=== PATIENT | male | born 1985 | race Caucasian/White ===

== ENCOUNTER 2023-05-27 15:43 | Emergency (ER) | payer MEDICAID, SELFPAY ==
[2023-05-27 15:45] VITALS: BP 153/102; PULSE 131; RESP 26; TEMP 37.7; O2SAT 99
--- NOTE | 2023-05-27 17:21 | ED.VIS.LOWEX ---
HPI History of Present Illness Chief Complaint: Lower Extremity Injury Informant: patient Narrative Narrative: Patient complains of pain in the right foot and ankle area. Patient accidentally stepped through a step yesterday evening. He was seen at [facility]. X-rays were done. He brought in the copies of the report. This did have 2 small images on it. When I look at this he has proximal fibula fracture along with a medial malleolar fracture and a little bit of widening of the mortise. This is consistent with a Maisonneuve fracture. He states they did tell him that. He has surgery set for this coming week. He just feels like the splint is very tight. No new trauma. He has been elevating it. He does not want anything for pain. He states he only wants to take Tylenol. PFSH PFSH Medical History no medical history Allergy/AdvReac Type Severity Reaction Status Date / Time No Known Allergies Allergy Verified 05/27/23 15:43 Surgical History no surgical history Social History Smoking Status: Never smoker ROS ROS ED Constitutional Constitutional ED: Denies sweats Cardiovascular Cardiovascular: Denies chest pain or palpitations Respiratory/Chest Respiratory/Chest: Denies cough or dyspnea Gastrointestinal Gastrointestinal: Denies nausea or vomiting Musculoskeletal Musculoskeletal: Reports other Details: Right leg pain. ; Denies neck pain Integumentary Denies rash Neurologic Neurologic: Reports paresthesias and other Details: Patient did feel little tingling intermittently on the toes. But not currently. ; Denies weakness Hematologic/Lymphatic Hematologic/Lymphatic: Denies easy bleeding or easy bruising Allergic/Immunologic Allergic/Immunologic ED: Denies urticaria EXAM Physical Exam Narrative Exam Narrative: General: Patient is awake and alert. He has his leg elevated he does look reasonably comfortable though. HEENT shows no trauma. Heart is actually regular now. He is only about 90. He was tachycardic when he came in. But I think he states it was more painful walking into the department. Lungs are clear. Abdomen is benign. Extremities: He has a bulky dressing with sugar-tong type splint on his right lower extremity. Toes are intact. They are not cyanotic. His sensation is intact. No real pain with motion. Const Vital Signs: 05/27/23 15:45 Temperature 99.8 F H Temperature Source Temporal Pulse Rate 131 H Respiratory Rate 26 H Blood Pressure 153/102 H Blood Pressure Mean 119 Pulse Ox 99 Oxygen Delivery Method Room Air MDM MDM MDM Narrative Medical decision making narrative: I unwrapped multiple Aristeo wrap's, took down the dressing, remove the splint, then unwrapped further wrappings. Patient states he feels almost instantly better. He states the pain is markedly down. He just thinks it was tight. I did let him sit for about an hour. He still feels comfortable. I will get him a boot orthosis. That way he can remove it if needed. But he can adjust the air bladders. He has crutches already. I explained that even though these boots are oftentimes termed walking boots, he should not bear weight. He already has follow-up arranged. Discharge Plan Triage Chief Complaint: Lower Extremity Injury ED Provider: Donnie Dahl Dx/Rx/DC Orders Clinical Impression: Tight cast, Maisonneuve fracture of right lower extremity Instructions: ED Leg Fracture Primary Care Provider: Care Physician,No Primary Referrals: Care Physician,No Primary [Primary Care Provider] - Activity Restrictions/Additional Instructions: Follow-up as scheduled for surgery. Disposition Disposition: Home, Self Care
[2023-05-27 17:52] VITALS: PULSE 84; RESP 18; O2SAT 97
== END 2023-05-27 17:53 | disposition home or self-care (01) ==
PROVIDERS: Emergency Provider Emergency Medicine; Visit Provider Emergency Medicine
DX: S82.861A Displaced Maisonneuve's fracture of right leg, initial encounter for closed fracture (principal); X58.XXXA Exposure to other specified factors, initial encounter
CPT/HCPCS: 99283

== ENCOUNTER → 2023-06-05 | Outpatient (CLI) | payer MEDICAID, SELFPAY ==
[2023-06-05 18:00] LABS: Absolute Lymphocyte Count 1.44 X10^3/uL (0.83-4.51); Absolute Neutrophil Count 6.9 X10^3/uL (2.0-7.7); Basophil# 0.06 X10^3/uL; Basophil% 0.6 % (0-1); Eosinophil# 0.23 X10^3/uL; Eosinophils% 2.4 % (0-5); Hematocrit 43.7 % (40-54); Hemoglobin 14.4 g/dL (13.0-16.5); Lymphocyte # 1.44 X10^3/ul (0.83-4.51); Lymphocyte % 14.8 % (19-41); Mean Corpuscular Hgb 28.6 pg (27.0-32.0); Mean Corpuscular Volume 86.9 fL (80-94); Mean Platelet Vol. 10.1 fl (6.2-12.0); Monocyte# 1.12 X10^3/uL; Monocyte% 11.5 % (0-10); NRBC Flagged by Analyzer 0 % (0-5); Neutrophil # 6.88 X10^3/uL (2.7-7.7); Neutrophil % 70.5 % (47-70); Platelet Count 322 K/mm3 (150-450); RBC Distribution Width SD 40.7 fl (35.1-43.9); Red Blood Count 5.03 M/mm3 (4.6-6.2); White Blood Count 9.8 K/mm3 (4.4-11.0)
[2023-06-05 18:27] LABS: ALB/GLOB Ratio 0.9 RATIO (0.9-2.4); AST(SGOT) 31 U/L (15-37); Alanine Aminotransfer ALT/SGPT 70 U/L (16-61); Albumin, Serum 3.9 g/dL (3.2-5.0); Alkaline Phosphatase 70 U/L (45-117); Anion Gap 3 (5-15); BUN 19 mg/dL (7-18); BUN/Creat Ratio 20.4 RATIO (10-20); Calcium,Total 9.1 mg/dL (8.5-10.1); Chloride 108 mmol/L (98-107); Creatinine, Serum 0.93 mg/dL (0.70-1.30); EST Glomerular Filtration Rate 97 mL/min (>60); Est Glom Filt Rate - Afr Amer 117 mL/min (>60); Globulin 4.2 g/dL (2.2-4.2); Glucose 94 mg/dL (74-106); Potassium 3.8 mmol/L (3.5-5.1); Protein, Total 8.1 g/dL (6.4-8.2); Sodium Level 140 mmol/L (136-145)
--- OUTSIDE RECORDS SUMMARY | 2023-06-05 18:45 | XMS RPT_ITS | CCD ---
Author Name Unknown Address [address] [place] [address] Organization [facility] Care Team Providers Care Bonding And Composite Fabricator Name Role Phone MAYA MIRANDA Unavailable Unavailable MAYA MIRANDA Unavailable Unavailable CRYSTAL RESENDEZ Attending Unavailable MAYA MIRANDA Primary Care Unavailable Problems Active Problems Problem Classification Problem Date Documented Da te Episodic/Chronic Fracture of lower limb (1 source) Displaced Maisonneuve's fracture of right leg, initial encounter for closed fracture; Translations: [Closed displaced Maisonneuve fracture of right lower extremity, initial encounter] Onset: 05-26-2023 Episodic Past or Other Problems Problem Classification Problem Date Documented Da te Episodic/Chronic Abdominal pain (1 source) Epigastric pain; Translations: [Epigastric pain] Onset: 04-11-2017 Episodic Other liver diseases (1 source) Unspecified jaundice; Translations: [Unspecified jaundice] Onset: 04-11-2017 Episodic Other lower respiratory disease (1 source) Pleurodynia; Translations: [Pleurodynia] Onset: 04-14-2017 Episodic Spondylosis; intervertebral disc disorders; other back problems (1 source) Low back pain; Translations: [Low back pain] Onset: 04-14-2017 Episodic Results Test Name Value Interpretation Reference Range Facil ity Encounters Encounter Date Encounter Type Care Provider Facility Start: 05-26-2023 End: 05-27-2023 Emergency department patient visit CRYSTAL RESENDEZ Facility:[facility] Start: 04-14-2017 [facility] Start: 04-11-2017 [facility] Payers Date Payer Category Payer Medicaid [id number] Summary Purpose Family History No Family History Records FoundNo Family History Records Found Advance Directives No Advanced Directives Records FoundNo Advanced Directives Records Found Additional Source Comments (unrecognized sect ion and content) No Status Records FoundNo Status Records Found INFORMATION SOURCE (unrecogn ized section and content) DATE CREATED AUTHOR AUTHOR'S VIVEK JOSÉ 05/28/2023 [facility] FOR RECORDS PERTAINING TO PATIENTS WHO ARE OR HAVE BEEN ENROLLED IN A CHEMICAL DEPENDENCY/SUBSTANCEABUSE PROGRAM, SOME INFORMATION MAY BE OMITTED. This clinical summary was aggregated from multiple sources. Caution should be exercised in using it in the provision of clinical care. This summary normalizes information from multiple sources, and as a consequence, information in this document may materially change the coding, format and clinical context of patient data. In addition, data may be omitted in some cases. CLINICAL DECISIONS SHOULD BE BASED ON THE PRIMARY CLINICAL RECORDS. [facility] [employer] [facility]. provides no warranty or guarantee of the accuracy or completeness of information in this document.
== END | disposition home or self-care (01) ==
PROVIDERS: Referring Provider Family Medicine; Visit Provider Family Medicine
DX: Z01.812 Encounter for preprocedural laboratory examination (principal)
CPT/HCPCS: 36415; 80053; 85025

== ENCOUNTER 2023-06-16 11:17 | Day surgery (SDC) | payer MEDICAID, SELFPAY ==
[2023-06-16] VITALS (11 sets, daily range): BP systolic 102–144; BP diastolic 69–96; PULSE 55–86; RESP 16–18; TEMP 36.3–36.8; O2SAT 92–97; BMI 26.3
--- OUTSIDE RECORDS SUMMARY | 2023-06-16 11:40 | XMS RPT_ITS | CCD ---
Author Name Unknown Address [address] [place] [address] Organization [facility] Care Team Providers Care Executive Secretary Name Role Phone MAYA MIRANDA Unavailable Unavailable [...] 05-27-2023 Emergency department patient visit CRYSTAL RESENDEZ Facility:[facility] Start: 04-14-2017 [facility] Start: 04-11-2017 [facility] Payers Date Payer Category Payer Medicaid [id number] Summary Purpose Family History No Family History Records FoundNo Family History Records Found Advance Directives No Advanced Directives Records FoundNo Advanced Directives Records Found Additional Source Comments (unrecognized sect ion and content) No Status Records FoundNo Status Records Found INFORMATION SOURCE (unrecogn ized section and content) DATE CREATED AUTHOR AUTHOR'S VIVEK JOSÉ 05/28/2023 [facility] FOR RECORDS PERTAINING TO PATIENTS WHO [...] BE BASED ON THE PRIMARY CLINICAL RECORDS. [facility] [employer] [facility]. provides no warranty or guarantee of the accuracy or completeness of information in this document.
--- NOTE | 2023-06-16 12:06 | DCINST_ITS ---
Discharge Instructions Diet Discharge Diet: No restrictions Activity Discharge Activity: May Not Drive and May Shower (Please utilize cast bag covering when showering to keep dressings clean, dry, and intact to the right leg) Weight Bearing Status: No weight bearing (Please remain nonweightbearing to the right lower extremity with the assistance of crutches) Keep extremity elevated above heart level: Right Leg (Please elevate right lower extremity at all times of rest for postoperative edema control) Dressing / Incision Call your doctor if you observe: Fever of 101 or Higher, Shortness of breath, Chest pain, Calf discomfort and Uncontrolled pain Change Dressing in: do not change dressing Remove Dressing in: leave in place till F/U (Do not remove dressing and leave dressing in place. Physician will change dressing at first postoperative appointment) Cleanse incision/area with: Do not get Incision Wet and Keep Dressing Clean & Dry (Please keep dressing clean, dry, and intact to the right lower extremity) Follow Up Care Please Follow Up With: Osvaldo Flores DPM When: Patient has first postoperative appointment with me in office early next week Test Results: Test results from this visit will be discussed in further detail at your follow- up appointment, if applicable. Discharge Plan Admission Attending Provider: Osvaldo Flores Primary Care Provider: Care PhysicianSallie Primary Discharge Orders/Prescriptions Prescriptions: New doxycycline hyclate 100 mg capsule 100 mg PO DAILY Qty: 10 0RF aspirin 325 mg tablet 325 mg PO DAILY Qty: 20 0RF oxycodone-acetaminophen 5-325 mg tablet 1 tab PO Q8H PRN (Reason: pain) 7 Days Qty: 28 0RF No Action hydrocodone-acetaminophen [hydrocodone-acetaminophen] 5-325 mg tablet 1 tab PO Q6H PRN PRN (Reason: Pain) 3 Days Qty: 12 0RF Referrals / Follow Up: Care PhysicianSallie Primary [Primary Care Provider] - Disposition Disposition (needs filled in before D/C Order can be placed): Home, Self Care
[2023-06-16] MEDS: Lactated Ringers 1,000 ML 15 ML IV (12:15)
--- NOTE | 2023-06-16 13:00 | RAD_ITS ---
INDICATION: FX EXAMINATION/TECHNIQUE: X-RAY - RIGHT XR Ankle 8 intraoperative Views COMPARISON: FINDINGS: Intraoperative images demonstrate ORIF at the distal tibia and fibula . Bony details are limited. RAD/Ankle min 3 Views IMPRESSION: Intraoperative images from ORIF of the fibula and tibia. Electronically Signed: Jim Gr DO at 19:20 EST ,
[2023-06-16] MEDS: Cefazolin 2 GM in 0.9% Normal Saline (100mL Bag) 100 ML IV (13:13)
[2023-06-16] MEDS: Lidocaine 1% (20 ml mdv) 20 ML Vial (15:16)
[2023-06-16] MEDS: Bupivacaine 0.5% PF 10 ML VIAL (15:16)
--- NOTE | 2023-06-16 16:03 | RAD_ITS ---
STUDY: X-RAY - RIGHT ANKLE REASON FOR EXAM: Male, 38 years old. Postop ORIF (PACU) TECHNIQUE: 3 view(s) of the ankle. COMPARISON: June 16, 2023 FINDINGS: Postsurgical changes noted status post open reduction internal fixation of trimalleolar fracture with fracture fragments in anatomic alignment and position.. Normal medial and lateral malleoli. Normal tibiotalar articulation and ankle mortise. Normal visualized talus and calcaneus. The visualized subtalar, talonavicular, calcaneocuboid and tarsal articulations are normal. The soft tissue structures are unremarkable. RAD/Ankle min 3 Views IMPRESSION: Status post ORIF bilateral trimalleolar fractures Electronically Signed: Kareem Hendrix MD at 16:17 EST ,
--- NOTE | 2023-06-16 17:02 | PCM.OPRPT ---
Problems Associated Problem List Diagnoses (1) Displaced trimalleolar fracture of right lower leg, initial encounter for closed fracture: (2) Displaced Maisonneuve's fracture of right leg, initial encounter for closed fracture: (3) Syndesmotic disruption of right ankle: (4) Pain in right lower leg: Report of Operation Date of Procedure: 06/16/23 Pre-Operative Diagnosis: 1. Displaced trimalleolar ankle fracture right ankle 2. Displaced Maisonneuve fracture right ankle 3. Disruption of syndesmosis right ankle 4. Pain right lower extremity Post-Operative Diagnosis: 1. Displaced trimalleolar ankle fracture right ankle 2. Displaced Maisonneuve fracture right ankle 3. Disruption of syndesmosis right ankle 4. Pain right lower extremity Surgery/Procedure Performed:: 1. ORIF displaced trimalleolar ankle fracture Right foot 2. Repair of syndesmosis Right ankle 3. Application of AO splint right lower extremity Description of Surgical Findings:: See operative note for final Surgeon: Osvaldo Flores loom overhauler: Andriy Garcia DPM PGY-2 Type of Anesthesia: General and Local (10 cc one-to-one mixture 1% lidocaine plain and 0.5% Marcaine plain; popliteal block postoperatively) Anesthesiologist: Tomas Nelson Specimen's removed: None Drains: None Estimated Blood Loss (mL): < 5 mL Description of Procedure: HPI/indication: Patient is a 38-year-old male who was returning home from work evening of 05/26/2023 while walking up deck steps foot got trapped between the steps and he fell and had immediate pain in the right ankle with difficulty weightbearing. He did go to outside hospital with radiographs taken demonstrating Maisonneuve fracture of the fibula with medial malleolar fracture and syndesmotic disruption of the right ankle. He was placed into a posterior splint but did have to return a few hours later due to splint being too tight and thus was transitioned into a cam boot and instructed to remain nonweightbearing to the right lower extremity. He was referred to orthopedics for follow-up, but orthopedics did send him to podiatry for fixation of his fracture. He was then seen in office 06/01/23 with updated radiographs obtained and discussion for fracture fixation. Patient at that time did not have PCP and thus needed to establish care for medical clearance prior to surgical intervention. PCP was established and he was medically cleared prior to ORIF. He did return for final surgical discussion 06/07/2023 and procedure was discussed in detail. Discussed surgical intervention was necessary for unstable displaced Maisonneuve fracture/displaced trimalar ankle with syndesmotic instability. He voices standing the need for and wishes to proceed forward so that he may return to job at an active lifestyle. We discussed all possible benefits versus risk and the potential complications in detail. Advised patient risks include but are not limited to the following: Pain, continued pain, complex regional pain syndrome, deformity, continue deformity, recurrence, overcorrection, under correction, neuritis/numbness, swelling, scarring, poor cosmetic result, bleeding, hardware failure, symptomatic/painful hardware, need for further surgery/procedures, fracture, nonunion, delayed union, nonhealing/delayed healing, dehiscence, infection, blood clots, allergic reaction, transfer lesions, postoperative arthritis, weakness, shoe gear problems, inability to walk, inability to wear shoe gear, stroke, heart attack, addiction to pain medication, loss of function, loss of limb, loss of life. Patient expressed understanding and agreement with these. Patient was able to repeat these back. Typical postoperative course was reviewed. Patient expressed understanding and agreement and surgical consent was signed by patient freely. No promises were made, no guarantees were given. Diagnostic data was reviewed prior to surgical intervention. Patient was seen prior to intervention and operative limb was signed prior to entering the OR. He was scheduled to undergo ORIF of displaced Maisonneuve fracture/displaced trimalleolar right ankle fracture with syndesmotic instability at [facility] on 06/16/2023. Procedure: Under mild sedation patient was brought to the operating room placed on the table in supine position. He was secured to table with safety belt. [place] bump placed under right hip and right foot/leg was elevated with blanket bump. Following IV sedation and induction of general anesthetic a pneumatic thigh tourniquet was placed about the patient's left thigh. Next, a local anesthetic block was performed about the proximal leg consisting of 10 cc one-to-one mixture of 1% lidocaine plain 0.5% Marcaine plain. Foot and leg were scrubbed, prepped, and draped in the usual aseptic manner. At this time fluoroscopic imaging was utilized to wade landmarks and guide incision placement with confirmation of fracture levels. Esmarch bandage was utilized to exsanguinate the right foot and the pneumatic thigh tourniquet was inflated to 300 mmHg. At this time attention was then directed to the right lower extremity where a linear incision was made overlying the distal fibula utilizing a #15 blade. Incision was deepened through sharp and blunt dissection and care was taken to identify and retract all vital neurovascular structures. Fibula was then visualized and a linear incision was made through the periosteum at the distal shaft of the fibula and reflected medially and laterally for eventual placement of hardware. Next, attention was then directed to the medial aspect of the right lower extremity where a J shaped incision was made utilizing a #15 blade over the medial malleolus. Incision was deepened through sharp and blunt dissection and care was taken to identify and retract all vital neurovascular structures. There was some noted remaining hematoma about the fracture site which was evacuated and the incision was made through the periosteum overlying the medial malleolus with fracture visualized. Fracture site was curetted and fracture site was prepared for reduction and reduced via pointed reduction clamp. Next, utilizing multiple fluoroscopic views 2 K wires were inserted at the medial malleolus and following AO principles two 4.0 cannulated screws measuring 54 mm each were inserted across the fracture site at the medial malleolus and a pointed reduction clamp was then removed. Fracture was noted to be reduced in anatomic position and multiple fluoroscopic views. Next attention was directed to the lateral incision where an Arthrex 4 hole one third tubular plate applied to the lateral aspect of the fibula and temporarily anchored via olive wire. Position of plate was confirmed in multiple fluoroscopic views and following AO principles a 3.5 x 14 mm locking screw was placed in the second hole down from the most proximal hole followed by a second 3.5 x 14 mm locking screw in the most distal hole to secure the plate to the fibula. A pointed reduction clamp was then utilized to reduce the syndesmosis under fluoroscopic imaging. Next, following AO principles a Arthrex tight rope XP was placed across the syndesmosis with Endobutton deployed medially. Following reduction of syndesmosis a hook test was then performed to the lateral fibula with no syndesmotic gapping noted. Following this an external rotation test was then performed under fluoroscopy with no noted gapping of the syndesmosis. All sites were then copiously irrigated with normal sterile saline. Final fluoroscopic imaging was obtained in multiple views demonstrating anatomic reduction post ORIF. Lateral incision site deep layer closed with 3-0 Vicryl. Subcutaneous tissues closed with 4-0 Monocryl. Skin reapproximated with 3-0 Prolene in simple interrupted fashion. Medial incision site deep layer closed with 3-0 Vicryl. Subcutaneous tissues closed with 4-0 Monocryl. Skin reapproximated with 3-0 Prolene in simple interrupted fashion. At this time the pneumatic thigh tourniquet was deflated and a prompt hyperemic response was noted to the digits of the foot. Incision sites dressed with Betadine soaked Adaptic, 4 x 4 gauze, Kerlix, Webril cast padding, 4 inch Aristeo wrapped, 6 inch Aristeo wrap. A well-padded AO posterior splint was applied to the right lower extremity and anchored with a 4 inch Aristeo wrap and 6 inch Aristeo wrap and modified Juárez compression fashion. Patient tolerated the procedure and anesthesia well was transported to PACU with vital signs stable and vascular status intact to the right foot. Postoperative images were obtained and reviewed in PACU prior to leaving. While in PACU patient did receive a popliteal block by anesthesia team for continued postoperative pain control. Discharge instructions were given to patient to remain nonweightbearing to the right lower extremity with the assistance of crutches. He is to continue to elevate the right lower extremity at all times of rest for continued postoperative edema control. He is instructed to keep all dressings clean, dry, and intact to the right lower extremity and utilize shower bag covering while seated on shower chair. He will take all postoperative medications as instructed. Patient has first postoperative appointment with me in office early next week. Grafts/Implants Used: Arthrex 4hole plate;3.5 locking screw x2;4.0 Cancellous screw x2;Tight rope Complications None Admit VTE Documentation VTE Present on Admission: No VTE Mechan Device Prophylaxis: SCD's VTE Pharm Prophylaxis ordered?: Yes
[2023-06-16] MEDS: LORazepam 2 MG/ML Syringe 0.5 MG IV (17:03)
== END 2023-06-16 18:40 | disposition home or self-care (01) ==
LOC: SDC 11:19 → AC 11:21
PROVIDERS: Referring Provider Student in an Organized Health Care Education/Training Program; Visit Provider Student in an Organized Health Care Education/Training Program
PROC: (CPT 27822; principal; 2023-06-16 12:40)
DX: S82.851A Displaced trimalleolar fracture of right lower leg, initial encounter for closed fracture (principal); S82.861A Displaced Maisonneuve's fracture of right leg, initial encounter for closed fracture; S93.431A Sprain of tibiofibular ligament of right ankle, initial encounter; W10.8XXA Fall (on) (from) other stairs and steps, initial encounter; Y92.008 Other place in unspecified non-institutional (private) residence as the place of occurrence of the external cause; Y93.01 Activity, walking, marching and hiking; F17.220 Nicotine dependence, chewing tobacco, uncomplicated
CPT/HCPCS: 27822; 27829; 01480; 64445; 73610; 76000; C1713; J7120; J2405

== ENCOUNTER 2023-06-17 04:11 | Emergency (ER) | payer MEDICAID, SELFPAY ==
[2023-06-17 04:12] VITALS: BP 129/85; PULSE 82; RESP 16; TEMP 36.8; O2SAT 100; BMI 25.8
--- OUTSIDE RECORDS SUMMARY | 2023-06-17 04:28 | XMS RPT_ITS | CCD ---
Author Name Unknown Address [address] [place] [address] Organization [facility] Care Team Providers Care Manager Athletics Name Role Phone MAYA MIRANDA Unavailable Unavailable [...] 05-27-2023 Emergency department patient visit CRYSTAL RESENDEZ Facility:[facility] Start: 04-14-2017 [facility] Start: 04-11-2017 [facility] Payers Date Payer Category Payer Medicaid [id number] Summary Purpose Family History No Family History Records FoundNo Family History Records Found Advance Directives No Advanced Directives Records FoundNo Advanced Directives Records Found Additional Source Comments (unrecognized sect ion and content) No Status Records FoundNo Status Records Found INFORMATION SOURCE (unrecogn ized section and content) DATE CREATED AUTHOR AUTHOR'S VIVEK JOSÉ 05/28/2023 [facility] FOR RECORDS PERTAINING TO PATIENTS WHO ARE [...] BE BASED ON THE PRIMARY CLINICAL RECORDS. [facility] [employer] [facility]. provides no warranty or guarantee of the accuracy or completeness of information in this document.
--- NOTE | 2023-06-17 05:26 | EX.ED.DYSGE1 ---
HPI History of Present Illness Chief Complaint: Lower Extremity Injury Informant: patient Narrative Narrative: Patient is a 38-year-old male with history of right ankle fracture. He states that he was treated outpatient surgery on June 15 secondary to the fracture and discharged home. He states since being at home he has been taking his pain medication as directed but as time is gone by he now has begun to feel an increased pain as well as a numbness/tingling sensation in his right foot. He states when he originally broke the ankle/foot the initial splint was put on too tight and led to lack of blood flow. He states that this feels similar nature which concerned him and therefore he presents for evaluation [facility] Medical History Alcohol use Crutches as ambulation aid Heartburn History of irregular heartbeat Non-smoker Home Medications hydrocodone-acetaminophen 5-325mg 5mg-325mg 1 tab PO Q6H PRN PRN Pain 3 days #12 TABLETS 05/27/23 [Rx Last Taken Unknown] aspirin 325 mg tablet 325 mg PO DAILY #20 tabs 06/16/23 [Rx Last Taken Unknown] doxycycline hyclate 100 mg capsule 100 mg PO DAILY #10 caps 06/16/23 [Rx Last Taken Unknown] oxycodone-acetaminophen 5 mg-325 mg tablet 1 tab PO Q8H PRN pain 7 days #28 tabs 06/16/23 [Rx Last Taken Unknown] diazepam 5 mg tablet (Valium) 5 mg PO TID PRN muscle pain/spasm 5 days #15 tabs 06/17/23 [Rx Last Taken Unknown] ibuprofen 600 mg tablet 600 mg PO 4X/DAY PRN PRN pain #40 tabs 06/17/23 [Rx Last Taken Unknown] Allergy/AdvReac Type Severity Reaction Status Date / Time No Known Allergies Allergy Verified 05/27/23 15:43 Surgical History History of tonsillectomy Social History Smoking Status: Never smoker ROS ROS ED Constitutional Constitutional ED: Denies chills or fever(s) ENT ENT ED: Denies sore throat Cardiovascular Cardiovascular: Denies chest pain Respiratory/Chest Respiratory/Chest: Denies cough or dyspnea Gastrointestinal Gastrointestinal: Denies abdominal pain, diarrhea, nausea or vomiting Genitourinary Genitourinary ED: Denies dysuria Musculoskeletal Musculoskeletal: Reports other Details: Positive right ankle/foot pain Integumentary Denies rash Neurologic Neurologic: Reports paresthesias; Denies headache(s) Hematologic/Lymphatic Hematologic/Lymphatic: Denies easy bleeding or easy bruising EXAM Physical Exam Const Vital Signs: 06/17/23 04:12 06/17/23 05:39 Temperature 98.3 F 97.5 F L Temperature Source Temporal Pulse Rate 82 74 Respiratory Rate 16 16 Blood Pressure 129/85 H 119/88 H Blood Pressure Mean 99 98 Pulse Ox 100 99 Positive well nourished and well developed General Appearance ED: well developed HEENT HEENT Narrative: Normocephalic atraumatic Eyes PERRL and EOMs intact bilaterally Neck supple Resp normal respiratory effort and clear to auscultation bilaterally Cardio regular rate and regular rhythm Extremity Extremity Narrative: Right lower extremity is neurovascularly intact. Dorsalis pedis pulses are equal. Capillary refills less than 2 seconds bilaterally. Compartments are soft and compressible going against compartment syndrome. Patient has postsurgical incisions to both the medial and lateral aspect of the ankle that are clean dry and intact. There is soft tissue swelling and ecchymosis present consistent with his recent surgery without obvious joint effusion. Negative Homans' sign bilaterally Remainder of the exam is normal. Neuro oriented x3, CN's II-XII intact bilaterally and no sensory deficits noted Sensorium / Orientation: alert Psych mental status grossly normal Skin Skin Narrative: Soft tissue changes to the right ankle/foot as documented above MDM MDM MDM Narrative Medical decision making narrative: Patient presented to the ER with stable vitals. He reported sensation of numbness tingling increased pain in his right ankle and foot. With his recent surgical procedure there is concern for compartment syndrome versus DVT versus infection versus arterial occlusion. The patient's dorsalis pedis pulse is strong and equal bilaterally with normal capillary refill and temperature going against arterial occlusion. He does not have any calf tenderness going against DVT. He does not have a fever nor there are any changes of erythema. No discharge lymphangitic streaking to suggest infection. With soft compressible compartments he does not have compartment syndrome either. By exam the splint is not overly tight and therefore I feel the patient is experiencing increased pain from his nerve block wearing off and potentially internal soft tissue swelling from the nature of the surgery. However he does not have signs of infection arterial or vascular occlusion or compartment syndrome there is no need for further workup and he is otherwise safe for discharge. History & Record Review Discussion w/independent historian: Patient and Significant other Discharge Plan Triage Chief Complaint: Lower Extremity Injury ED Provider: Clay Armas Dx/Rx/DC Orders Clinical Impression: Other acute postprocedural pain, Displaced trimalleolar fracture of right lower leg, initial encounter for closed fracture, Displaced Maisonneuve's fracture of right leg, initial encounter for closed fracture Instructions: Ankle Fracture ORIF, Managing Post-Op Pain at Home Prescriptions: New diazepam [Valium] 5 mg tablet 5 mg PO TID PRN (Reason: muscle pain/spasm) 5 Days Qty: 15 0RF ibuprofen 600 mg tablet 600 mg PO 4X/DAY PRN PRN (Reason: pain) Qty: 40 1RF No Action hydrocodone-acetaminophen [hydrocodone-acetaminophen] 5-325 mg tablet 1 tab PO Q6H PRN PRN (Reason: Pain) 3 Days Qty: 12 0RF doxycycline hyclate 100 mg capsule 100 mg PO DAILY Qty: 10 0RF aspirin 325 mg tablet 325 mg PO DAILY Qty: 20 0RF oxycodone-acetaminophen 5-325 mg tablet 1 tab PO Q8H PRN (Reason: pain) 7 Days Qty: 28 0RF Primary Care Provider: Care Physician,No Primary Referrals: Osvaldo Flores DPM [Med Staff - Active Staff] - Care Physician,No Primary [Primary Care Provider] - Activity Restrictions/Additional Instructions: Please add the ibuprofen and Valium to your pain regimen for improved control. Please follow-up with your surgeon for repeat evaluation and return to the ER should you have any further concerns Disposition Disposition: Home, Self Care Discharge Date/Time: 06/17/23 05:58
[2023-06-17] MEDS: Ibuprofen 600 MG Tablet PO (05:36)
[2023-06-17 05:39] VITALS: BP 119/88; PULSE 74; RESP 16; TEMP 36.4; O2SAT 99
[2023-06-17] MEDS: diazePAM 5 MG Tablet PO (05:50)
[2023-06-17] MEDS: Ondansetron ODT 4 MG Tablet PO (05:50)
[2023-06-17] MEDS: Morphine 4 MG/ML Syringe 6 MG IM (05:52)
== END 2023-06-17 05:58 | disposition home or self-care (01) ==
PROVIDERS: Emergency Provider Emergency Medicine; Visit Provider Emergency Medicine
DX: G89.18 Other acute postprocedural pain (principal); S82.851A Displaced trimalleolar fracture of right lower leg, initial encounter for closed fracture; S82.861A Displaced Maisonneuve's fracture of right leg, initial encounter for closed fracture; X58.XXXA Exposure to other specified factors, initial encounter
CPT/HCPCS: 96372; 99283

== ENCOUNTER 2025-01-08 00:15 | Emergency (ER) | payer MEDICAID, SELFPAY ==
[2025-01-08 00:16] VITALS: BP 151/104; PULSE 58; RESP 16; TEMP 36.2; O2SAT 98; BMI 25.1
--- OUTSIDE RECORDS SUMMARY | 2025-01-08 00:29 | XMS RPT_ITS | CCD ---
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 for administration according to line specific nursing protocol. Once exam is complete flush line and de-access according to line specific nursing protocol in the MR contrast administration guidelines link. - cholecalciferol, Vitamin D3, (VITAMIN D3) 1,250 mcg (50,000 unit) cap capsule Take 1 capsule by mouth one time a week. - thiamine (VITAMIN B1) 100 mg tablet Take 1 tablet by mouth once daily. - folic acid 1 mg tablet Take 1 tablet by mouth once daily. Problem List As Of Date 04/24/2024 Noted Resolved Alcohol abuse [F10.10] Vitamin D deficiency [E55.9] Sebaceous cyst [L72.3] Lipoma of back [D17.1] Hyperlipemia [E78.5] Chewing tobacco use [Z72.0] Prescriptions ordered this encounter Disp Refills Start End IV CONTRAST (RADIOLOGY PROCEDURE) - * 1 Ea* 0 04/24/2024 04/25/2024 Class: In Office Sig: MRI Liver Inject, intravenously, once for 1 dose. No IV access, insert saline lock prior to the beginning of sedation, infusion, injection of imaging exam. Discontinue saline lock post exam. If Pt. has a central line or IVAD, may access for administration according to line specific nursing protocol. Once exam is complete flush line and de-access according to line specific nursing protocol in the MR contrast administration guidelines link. Encounter Status:Closed by RADHA RAMIREZ on 04/24/24 Normal [facility] MR Liver WO and W contrast I VOrdered By: Ccf Provider on 2024 Interpretation and review of laboratory results Abnormal [facility] Radiology Result ACTIONABLE Abnormal [facility] Comment on above: This report contains an incidental or actionable finding. This finding may be a new finding separate from the reason your provider ordered the imaging test or it may be an already known finding that needs additional or continued follow-up. Because of this incidental or actionable finding, you may need another test (imaging or a different type of test). Please contact your provider for the next steps. [facility] MR Liver WO and W contrast I Von 2024 IMPRESSION: Indeterminate right hepatic lobe lesion corresponding to the abnormality seen on prior US. Due to its irregular shape and lack of significant enhancement on any sequence, it may represent an area of prior injury and contusion, however it is not confidently characterized. Follow-up with MRI with extracellular agent is recommended in 3-6 months to assess stability. ACTIONABLE RESULT: FOLLOW-UP Acuity: Actionable Findings: Liver Routing Code: LV_1 Recommendation: MRI LIVER WO/W IVCON (add Dotarem in comments) Time Frame: At the discretion of the clinical team. COMMUNICATION: Results will be communicated with the ordering provider via [employer] staff message or phone message by [employer] within 2 business days of report finalization. --END OF FINDING-- Church History Teacher: EMILY Transcribe Date/Time: 2024 3:25P Dictated by : ANTONIA MOHAN MD This examination was interpreted and the report reviewed and electronically signed by: ANTONIA MOHAN MD on 2024 3:34PM [facility] DIVISION OF RADIOLOGY * * *Final Report* * * DATE OF EXAM: 2024 3:10PM [facility] 27 - MRI LIVER WO/W IVCON / PROCEDURE REASON: Liver lesion, right lobe * * * * Physician Interpretation * * * * MRI ABDOMEN WITHOUT AND WITH IV CONTRAST CLINICAL HISTORY: Liver lesion on US TECHNIQUE: Multiplanar MRI of the abdomen with multiple sequences, including both pre- and post-contrast imaging. Contrast: Intravenous: 10 ml of Eovist COMPARISON: None. RESULT: Lower Thorax: Normal. Liver: No fat or iron. Irregular hypoenhancing lesion in segment 7 measuring approximately 2.8 x 2.4 cm (25:29) corresponding to the lesion seen on prior US. The lesion does not demonstrate significant enhancement on any sequence and does not demonstrate uptake of the hepatobiliary agent. It does not demonstrate restricted diffusion and does not have signal abnormality on the T1 and T2 sequences. Gallbladder/Biliary Tree: Normal. Spleen: Normal. Pancreas: Normal. Adrenal Glands: Normal. Kidneys/Ureters: Subcentimeter right renal cyst. No hydronephrosis. Gastrointestinal: Normal. Lymph Nodes: Normal. Vessels: The celiac axis and SMA are patent. The portal vein and branches, splenic vein, SMV, and hepatic veins are patent. Peritoneum/Retroperit oneum: Normal. Bones/Soft Tissues: Normal. DIVISION OF RADIOLOGY Provider, [facility] - 2024 * * *Final Report* * * DATE OF EXAM: 2024 3:10PM [facility] 27 - MRI LIVER WO/W IVCON / PROCEDURE REASON: Liver lesion, right lobe * * * * Physician Interpretation * * * * MRI ABDOMEN WITHOUT AND WITH IV CONTRAST CLINICAL HISTORY: Liver lesion on US TECHNIQUE: Multiplanar MRI of the abdomen with multiple sequences, including both pre- and post-contrast imaging. Contrast: Intravenous: 10 ml of Eovist COMPARISON: None. RESULT: Lower Thorax: Normal. Liver: No fat or iron. Irregular hypoenhancing lesion in segment 7 measuring approximately 2.8 x 2.4 cm (25:29) corresponding to the lesion seen on prior US. The lesion does not demonstrate significant enhancement on any sequence and does not demonstrate uptake of the hepatobiliary agent. It does not demonstrate restricted diffusion and does not have signal abnormality on the T1 and T2 sequences. Gallbladder/Biliary Tree: Normal. Spleen: Normal. Pancreas: Normal. Adrenal Glands: Normal. Kidneys/Ureters: Subcentimeter right renal cyst. No hydronephrosis. Gastrointestinal: Normal. Lymph Nodes: Normal. Vessels: The celiac axis and SMA are patent. The portal vein and branches, splenic vein, SMV, and hepatic veins are patent. Peritoneum/Retroperit oneum: Normal. Bones/Soft Tissues: Normal. IMPRESSION IMPRESSION: Indeterminate right hepatic lobe lesion corresponding to the abnormality seen on prior US. Due to its irregular shape and lack of significant enhancement on any sequence, it may represent an area of prior injury and contusion, however it is not confidently characterized. Follow-up with MRI with extracellular agent is recommended in 3-6 months to assess stability. ACTIONABLE RESULT: FOLLOW-UP Acuity: Actionable Findings: Liver Routing Code: LV_1 Recommendation: MRI LIVER WO/W IVCON (add Dotarem in comments) Time Frame: At the discretion of the clinical team. COMMUNICATION: Results will be communicated with the ordering provider via [employer] staff message or phone message by [facility] within 2 business days of report finalization. --END OF FINDING-- Church History Teacher: PSCB Transcribe Date/Time: 2024 3:25P Dictated by : ANTONIA MOHAN MD This examination was interpreted and the report reviewed and electronically signed by: ANTONIA MOHAN MD on 2024 3:34PM [facility] Radiology Study observation (narrative) [facility] MRI LIVER WO/W IVCONon 04-23 MRI LIVER WO/W IVCON * * *Final Report* * * DATE OF EXAM: 2024 3:10PM [facility] 0727 - MRI LIVER WO/W IVCON / PROCEDURE REASON: Liver lesion, right lobe * * * * Physician Interpretation * * * * MRI ABDOMEN WITHOUT AND WITH IV CONTRAST CLINICAL HISTORY: Liver lesion on US TECHNIQUE: Multiplanar MRI of the abdomen with multiple sequences, including both pre- and post-contrast imaging. Contrast: Intravenous: 10 ml of Eovist COMPARISON: None. RESULT: Lower Thorax: Normal. Liver: No fat or iron. Irregular hypoenhancing lesion in segment 7 measuring approximately 2.8 x 2.4 cm (25:29) corresponding to the lesion seen on prior US. The lesion does not demonstrate significant enhancement on any sequence and does not demonstrate uptake of the hepatobiliary agent. It does not demonstrate restricted diffusion and does not have signal abnormality on the T1 and T2 sequences. Gallbladder/Biliary Tree: Normal. Spleen: Normal. Pancreas: Normal. Adrenal Glands: Normal. Kidneys/Ureters: Subcentimeter right renal cyst. No hydronephrosis. Gastrointestinal: Normal. Lymph Nodes: Normal. Vessels: The celiac axis and SMA are patent. The portal vein and branches, splenic vein, SMV, and hepatic veins are patent. Peritoneum/Retroperit oneum: Normal. Bones/Soft Tissues: Normal. IMPRESSION: Indeterminate right hepatic lobe lesion corresponding to the abnormality seen on prior US. Due to its irregular shape and lack of significant enhancement on any sequence, it may represent an area of prior injury and contusion, however it is not confidently characterized. Follow-up with MRI with extracellular agent is recommended in 3-6 months to assess stability. ACTIONABLE RESULT: FOLLOW-UP Acuity: Actionable Findings: Liver Routing Code: LV_1 Recommendation: MRI LIVER WO/W IVCON (add Dotarem in comments) Time Frame: At the discretion of the clinical team. COMMUNICATION: Results will be communicated with the ordering provider via [employer] staff message or phone message by [facility] within 2 business days of report finalization. --END OF FINDING-- Church History Teacher: EMILY Transcribe Date/Time: 2024 3:25P Dictated by : ANTONIA MOHAN MD This examination was interpreted and the report reviewed and electronically signed by: ANTONIA MOHAN MD on 2024 3:34PM EST [id number] ACTIONABLE Invalid Interpretation Code [facility] Martha 04-09-2024 SOURAV Telephone (FAMPWS) FAUSTINO NORIEGA ([id number]) 1985 M Date Time Provider Department 12/24/24 FRANKLIN IYER During your visit today, we recorded the following information about you: Franklin Iyer MD 04/09/2024 10:14 AM Signed Liver US does not show signs of cirrhosis or liver disease, but does show right lobe lesion which is indeterminate. Recommend MRI for further evaluation. Order placed to be completed MAVIS. Please assist with scheduling. Radha Ramirez LPN 04/09/2024 11:42 AM Signed Telephone call placed to patient. Went over results and recommendations. Call for scheduling given to patient, will get scheduled for MRI. Radha Ramirez LPN Allergies As of Date: 04/09/2024 (No Known Allergies) Date Reviewed: 03/30/2024 Reviewed by: Bruce Arias MA - Fully Assessed Reason for Visit: Results [95] Primary Visit Diagnosis:Liver lesion, right lobe [K76.9] Order(s):MRI LIVER WO/W IVCON [[id number]] Order #: [id number] FUTURE iv contrast (will be provided with radiology test)MRI Liver Inject, intravenously, once for 1 dose. No IV access, insert saline lock prior to the beginning of sedation, infusion, injection of imaging exam. Discontinue saline lock post exam. If Pt. has a central line or IVAD, may access for administration according to line specific nursing protocol. Once exam is complete flush line and de-access according to line specific nursing protocol in the MR contrast administration guidelines link.Disp: 1 EachRfl: 0 Prescriptions as of 04/09/2024 - iv contrast (will be provided with radiology test) MRI Liver Inject, intravenously, once for 1 dose. No IV access, insert saline lock prior to the beginning of sedation, infusion, injection of imaging exam. Discontinue saline lock post exam. If Pt. has a central line or IVAD, may access for administration according to line specific nursing protocol. Once exam is complete flush line and de-access according to line specific nursing protocol in the MR contrast administration guidelines link. - cholecalciferol, Vitamin D3, (VITAMIN D3) 1,250 mcg (50,000 unit) cap capsule Take 1 capsule by mouth one time a week. - thiamine (VITAMIN B1) 100 mg tablet Take 1 tablet by mouth once daily. - folic acid 1 mg tablet Take 1 tablet by mouth once daily. Problem List As Of Date 04/09/2024 Noted Resolved Alcohol abuse [F10.10] Vitamin D deficiency [E55.9] Sebaceous cyst [L72.3] Lipoma of back [D17.1] Hyperlipemia [E78.5] Chewing tobacco use [Z72.0] Prescriptions ordered this encounter Disp Refills Start End IV CONTRAST (RADIOLOGY PROCEDURE) - * 1 Ea* 0 04/09/2024 04/10/2024 Class: In Office Sig: MRI Liver Inject, intravenously, once for 1 dose. No IV access, insert saline lock prior to the beginning of sedation, infusion, injection of imaging exam. Discontinue saline lock post exam. If Pt. has a central line or IVAD, may access for administration according to line specific nursing protocol. Once exam is complete flush line and de-access according to line specific nursing protocol in the MR contrast administration guidelines link. Encounter Status:Closed by RADHA RAMIREZ on 04/09/24 Normal [facility] US ABD RIGHT UPPER QUADRANTo n 04-08-2024 US ABD RIGHT UPPER QUADRANT * * *Final Report* * * DATE OF EXAM: Apr 08 2024 2:53PM [facility] 1032 - US ABD RIGHT UPPER QUADRANT / PROCEDURE REASON: multiple diagnoses * * * * Physician Interpretation * * * * EXAMINATION: RIGHT UPPER QUADRANT ULTRASOUND CLINICAL HISTORY: EtOH use TECHNIQUE: Sonography of the right upper quadrant was performed. Images were obtained and stored in a permanent archive. MQ: [id number] COMPARISON: 04/11/2017 ultrasound. RESULT: Pancreas: Normal sonographic appearance. Portions obscured: tail Liver: Echotexture: Coarse Echogenicity: Normal Surface contour: Smooth Lesions: Circumscribed hypoechoic right hepatic lobe lesion of 2.3 x 1.3 x 2.3 cm. A vascular. Biliary: No intrahepatic biliary duct dilation. CBD: 0.5 cm at the hilum. Gallbladder: Normal caliber -Contents: No cholelithiasis -Wall: Normal -Other: No pericholecystic fluid. Right Kidney: No hydronephrosis. Ascites: None. IMPRESSION: Indeterminate right hepatic lobe lesion. Further evaluation with hepatic MR recommended. Otherwise normal sonographic appearance of the right upper quadrant. ACTIONABLE RESULT: FOLLOW-UP Acuity: Actionable Findings: Liver Routing Code: LV_1 Recommendation: Unlisted Recommendation (see report) Time Frame: At the discretion of the clinical team. COMMUNICATION: Results will be communicated with the ordering provider via [employer] staff message or phone message by [facility] within 2 business days of report finalization. --END OF FINDING-- Church History Teacher: EMILY Transcribe Date/Time: Apr 09 2024 8:10A Dictated by : THIERNO SARMIENTO MD This examination was interpreted and the report reviewed and electronically signed by: THIERNO SARMIENTO MD on Apr 09 2024 8:33AM EST [id number] N ACTIONABLE Invalid Interpretation Code [facility] 04-03-2024 CNPN Telephone (FAMWS) FAUSTINO NORIEGA ([id number]) 1985 Date Time Provider Department 04/03/24 FRANKLIN IYER [facility] During your visit today, we recorded the following information about you: Franklin Iyer MD 04/03/2024 8:37 AM Signed Vitamin D level severely low. Recommend 50,000 units of vitamin D weekly x 12 weeks and recheck in 3 months. Testing for thiamine deficiency was negative. If he is abstaining from alcohol, I would have him hold the vitamin B1/thiamine supplement for now, but if he were to resume drinking would have him start this to prevent deficiency. Continue folate supplement. Negative for infection with hepatitis B and C. No immunity to hepatitis B. Recommend 3 dose vaccination series as NV. Will place orders if patient agreeable. Hepatitis A testing was not done with these labs. If he does not believe he has had hepatitis A vaccination, would recommend twinrix vaccination series instead which contains both hepatitis A and B. Cholesterol level mildly elevated. Recommend low cholesterol diet and exercise. Recheck in 1 year. Elizabeth Martinez, LAL 04/03/2024 9:18 AM Signed left message for patient to call office back and speak with triage nurse. ALL Kingsley Michelle, LPN 04/03/2024 6:13 PM Signed Patient reached out through [employer]. [employer] message sent to patient with providers results and recommendations. Radha Ramirez LPN Allergies As of Date: 04/03/2024 (No Known Allergies) Date Reviewed: 03/30/2024 Reviewed by: Bruce Arias MA - Fully Assessed Reason for Visit: Results [95] Primary Visit Diagnosis:Vitamin D deficiency [E55.9] Other Visit Diagnoses:Sebaceous cyst [L72.3] Lipoma of back [D17.1] Hyperlipidemia, unspecified hyperlipidemia type [E78.5] Chewing tobacco use [Z72.0] Order(s):cholecalcife rol, Vitamin D3, (VITAMIN D3) 1,250 mcg (50,000 unit) cap capsuleTake 1 capsule by mouth one time a week.Disp: 12 capsuleRfl: 0 VITAMIN D 25 HYDROXY [SQVITD] Order #: [id number] FUTURE Prescriptions as of 04/03/2024 - cholecalciferol, Vitamin D3, (VITAMIN D3) 1,250 mcg (50,000 unit) cap capsule Take 1 capsule by mouth one time a week. - thiamine (VITAMIN B1) 100 mg tablet Take 1 tablet by mouth once daily. - folic acid 1 mg tablet Take 1 tablet by mouth once daily. Problem List As Of Date 04/03/2024 Noted Resolved Alcohol abuse [F10.10] Vitamin D deficiency [E55.9] Sebaceous cyst [L72.3] Lipoma of back [D17.1] Hyperlipemia [E78.5] Chewing tobacco use [Z72.0] Prescriptions ordered this encounter Disp Refills Start End CHOLECALCIFEROL (VITAMIN D3) 1,250 M* 12 c* 0 04/03/2024 07/02/2024 Route: ORAL Sig: Take 1 capsule by mouth one time a week. Encounter Status:Closed by RADHA RAMIREZ on 04/03/24 Normal [facility] 25(OH)[facility] 25-hydroxyvitamin D3 [Mass/Vol] 17.4 ng/mL Low 31.0-80.0 [facility] Comment on above: Order Comment: Speci men Type: BLOOD SPECIMENOrdering Facility: [facility] Address: [address] [place] [address] Result Comment: Clas sification of 25 [place] Vitamin D status: Deficiency/Insufficiency: < or = 30 ng/ml. Sufficiency/Optimal Levels: 31-80 ng/mL Toxicity: > 100 ng/mL. Test performed by chemiluminescent immunoassay. Performed By: #### 1 989-3 ####[facility] LABCLIA [id number] [place] [address] [place] CBC W Auto Differential pane l (Bld)on 03-30-2024 Basophils (Bld) [#/Vol] 0.08 10*3/uL Normal <0.11 [facility] Comment on above: Order Comment: Speci men Type: BLOOD SPECIMENOrdering Facility: [facility] Address: [address] [place] [address] Performed By: #### 5 7021-8 ####[facility] LABCLIA [id number] [place] [address] [place] Basophils/100 WBC (Bld) 1.2 % Normal [facility] Comment on above: Order Comment: Speci men Type: BLOOD SPECIMENOrdering Facility: [facility] Address: [address] [place] [address] Performed By: #### 5 7021-8 ####[facility] LABCLIA [id number] [place] [address] [place] Differential cell count method Nom (Bld) Auto Normal [facility] Comment on above: Order Comment: Speci men Type: BLOOD SPECIMENOrdering Facility: [facility] Address: [address] [place] [address] Performed By: #### 5 7021-8 ####[facility] LABCLIA [id number] [place] [address] [place] Eosinophils (Bld) [#/Vol] 0.34 10*3/uL Normal <0.46 [facility] Comment on above: Order Comment: Speci men Type: BLOOD SPECIMENOrdering Facility: [facility] Address: [address] [place] [address] Performed By: #### 5 7021-8 ####[facility] LABIA [id number] [place] [address] [place] Eosinophils/100 WBC (Bld) 5.0 % Normal [facility] Comment on above: Order Comment: Speci men Type: BLOOD SPECIMENOrdering Facility: [facility] Address: [address] [place] [address] Performed By: #### 5 7021-8 ####[facility] LABIA [id number] [place] [address] [place] Erythrocyte distribution width (RBC) [Ratio] 12.9 % Normal 11.5-15.0 [facility] Comment on above: Order Comment: Speci men Type: BLOOD SPECIMENOrdering Facility: [facility] Address: [address] [place] [address] Performed By: #### 5 7021-8 ####[facility] LABIA [id number] [place] [address] [place] Hematocrit (Bld) [Volume fraction] 45.9 % Normal 39.0-51.0 [facility] Comment on above: Order Comment: Speci men Type: BLOOD SPECIMENOrdering Facility: [facility] Address: [address] [place] [address] Performed By: #### 5 7021-8 ####[facility] LABIA [id number] [place] [address] [place] Hemoglobin (Bld) [Mass/Vol] 15.0 g/dL Normal 13.0-17.0 [facility] Comment on above: Order Comment: Speci men Type: BLOOD SPECIMENOrdering Facility: [facility] Address: [address] [place] [address] Performed By: #### 5 7021-8 ####[facility] LABCLIA [id number] [place] [address] [place] Immature granulocytes (Bld) [#/Vol] 0.03 10*3/uL Normal <0.10 [facility] Comment on above: Order Comment: Speci men Type: BLOOD SPECIMENOrdering Facility: [facility] Address: [address] [place] [address] Performed By: #### 5 7021-8 ####[facility] LABCLIA [id number] [place] [address] [place] Immature granulocytes/100 WBC (Bld) 0.4 % Normal [facility] Comment on above: Order Comment: Speci men Type: BLOOD SPECIMENOrdering Facility: [facility] Address: [address] [place] [address] Performed By: #### 5 7021-8 ####[facility] LABIA [id number] [place] [address] [place] Lymphocytes (Bld) [#/Vol] 1.92 10*3/uL Normal 1.00-4.00 [facility] Comment on above: Order Comment: Speci men Type: BLOOD SPECIMENOrdering Facility: [facility] Address: [address] [place] [address] Performed By: #### 5 7021-8 ####[facility] LABCLIA [id number] [place] [address] [place] Lymphocytes/100 WBC (Bld) 28.3 % Normal [facility] Comment on above: Order Comment: Speci men Type: BLOOD SPECIMENOrdering Facility: [facility] Address: [address] [place] [address] Performed By: #### 5 7021-8 ####[facility] LABCLIA [id number] [place] [address] [place] MCH (RBC) [Entitic mass] 28.1 pg Normal 26.0-34.0 [facility] Comment on above: Order Comment: Speci men Type: BLOOD SPECIMENOrdering Facility: [facility] Address: [address] [place] [address] Performed By: #### 5 7021-8 ####[facility] LABCLIA [id number] [address] [address] [place] MCHC (RBC) [Mass/Vol] 32.7 g/dL Normal 30.5-36.0 [facility] Comment on above: Order Comment: Speci men Type: BLOOD SPECIMENOrdering Facility: [facility] Address: [address] [place] [address] Performed By: #### 5 7021-8 ####[facility] LABIA [id number] [place] [address] [place] MCV (RBC) [Entitic vol] 86.0 fL Normal 80.0-100.0 [facility] Comment on above: Order Comment: Speci men Type: BLOOD SPECIMENOrdering Facility: [facility] Address: [address] [place] [address] Performed By: #### 5 7021-8 ####[facility] LABIA [id number] [place] [address] [place] Monocytes (Bld) [#/Vol] 1.01 10*3/uL High <0.87 [facility] Comment on above: Order Comment: Speci men Type: BLOOD SPECIMENOrdering Facility: [facility] Address: [address] [place] [address] Performed By: #### 5 7021-8 ####[facility] LABIA [id number] [place] [address] [place] Monocytes/100 WBC (Bld) 14.9 % Normal [facility] Comment on above: Order Comment: Speci men Type: BLOOD SPECIMENOrdering Facility: [facility] Address: [address] [place] [address] Performed By: #### 5 7021-8 ####[facility] LABCLIA [id number] [place] [address] [place] Neutrophils (Bld) [#/Vol] 3.41 10*3/uL Normal 1.45-7.50 [facility] Comment on above: Order Comment: Speci men Type: BLOOD SPECIMENOrdering Facility: [facility] Address: [address] [place] [address] Performed By: #### 5 7021-8 ####[facility] LABCLIA [id number] [place] [address] [place] Neutrophils/100 WBC (Bld) 50.2 % Normal [facility] Comment on above: Order Comment: Speci men Type: BLOOD SPECIMENOrdering Facility: [facility] Address: [address] [place] [address] Performed By: #### 5 7021-8 ####[facility] LABCLIA [id number] [place] [address] [place] Nucleated RBC (Bld) [#/Vol] 10*3/uL Normal <0.01 [facility] Comment on above: Order Comment: Speci men Type: BLOOD SPECIMENOrdering Facility: [facility] Address: [address] [place] [address] Performed By: #### 5 7021-8 ####[facility] LABCLIA [id number] [place] [address] [place] Nucleated RBC/100 WBC (Bld) [Ratio] 0.0 /100 WBC Normal [facility] Comment on above: Order Comment: Speci men Type: BLOOD SPECIMENOrdering Facility: [facility] Address: [address] [place] [address] Performed By: #### 5 7021-8 ####[facility] LABCLIA [id number] [place] [address] [place] Platelet mean volume (Bld) [Entitic vol] 11.3 fL Normal 9.0-12.7 [facility] Comment on above: Order Comment: Speci men Type: BLOOD SPECIMENOrdering Facility: [facility] Address: [address] [place] [address] Performed By: #### 5 7021-8 ####[facility] LABCLIA [id number] [place] [address] [place] Platelets (Bld) [#/Vol] 252 10*3/uL Normal 150-400 [facility] Comment on above: Order Comment: Speci men Type: BLOOD SPECIMENOrdering Facility: [facility] Address: [address] [place] [address] Performed By: #### 5 7021-8 ####[facility] LABIA [id number] [place] [address] [place] RBC (Bld) [#/Vol] 5.34 10*6/uL Normal 4.20-6.00 [facility] Comment on above: Order Comment: Speci men Type: BLOOD SPECIMENOrdering Facility: [facility] Address: [address] [place] [address] Performed By: #### 5 7021-8 ####[facility] LABIA [id number] [place] [address] [place] WBC (Bld) [#/Vol] 6.79 10*3/uL Normal 3.70-11.00 [facility] Comment on above: Order Comment: Speci men Type: BLOOD SPECIMENOrdering Facility: [facility] Address: [address] [place] [address] Performed By: #### 5 7021-8 ####[facility] LABIA [id number] [place] [address] [place] CNOVon 03-30-2024 CNOV Office Visit (FAMPWS ) FAUSTINO NORIEGA ([id number]) 1985 M Date Time Provider Department 03/30/24 10:00 AM FRANKLIN IYER During your visit today, we recorded the following information about you: Pulse Respiration Blood pressure Weight 78/minute 14/minute 142/96 92.1 kg Height 1.76 m Franklin Iyer MD 03/31/2024 6:46 AM Signed Chief Complaint Patient presents with: Establish Care: HPI Faustino Noriega is a 38 year old male who presents here today for Above Complaints. Previous PCP Willie Leal with last OV in 2017. Patient here today because he is worried about possible liver disease due to alcohol use. Patient states that over the last 6-7 months he has noticed the corners of his eyes will turn yellow, pale colored stools (light brown/yellow), and fatigue. States that he was drinking 5-10 beers about 5-6 days per week, but has not had any alcohol in the last week. States that he does not want help with cessation and thinks he will be able to abstain on his own. Had DUI at age 22. Does not drink in the morning and does not get shaking after not having a drink for 24 hours. Girlfriend has expressed concerns with his drinking and has wanted him to cut back. Denies yellowing of his skin, abdominal pain/distention, itching, bleeding/bruising. Also would like lump below right eyebrow checked today. Present for the last 8-9 months and has not changed in size. Non tender. No drainage. . Last tetanus booster more than 10 years ago and would like updated today. Unsure if he has been vaccinated for hepatitis A or B. Past medical history, appointments, medications, allergies reviewed. Previous Medical History PAST MEDICAL HISTORY Diagnosis Date Alcohol abuse Ankle fracture, right, closed, initial encounter 06/2023 s/p ORIF Chewing tobacco use Heart murmur Lipoma of back Previous Surgical History PAST SURGICAL HISTORY Procedure Laterality Date PAST SURGICAL HISTORY OF Right 06/2023 DEMI ankle fracture TONSILLECTOMY AND ADENOIDECTOMY Family History FAMILY HISTORY Problem Relation Age of Onset No Known Problems Mother other (colon) Father Lung Cancer Maternal Grandfather Lung Cancer Paternal Grandfather No Known Problems Son No Known Problems Daughter Patient Allergies ALLERGIES No Known Allergies Current Medications No current outpatient medications on file prior to visit. No current facility-administered medications on file prior to visit. Social History Social History Tobacco Use Smoking status: Never Smokeless tobacco: Current Types: Chew Tobacco comments: Chewed starting age 15. 1 can every 4 days. Vaping Use Vaping status: Never Used Substance Use Topics Alcohol use: Yes Alcohol/week: 50.0 standard drinks of alcohol Types: 50 Standard drinks or equivalent per week Drug use: Never Review of Symptoms REVIEW OF SYSTEMS GENERAL: No weight loss, malaise or fevers NECK: Negative for lumps, goiter, pain and significant neck swelling RESPIRATORY: Negative for cough, hemoptysis, wheezing, COPD, dyspnea or shortness of breath CARDIOVASCULAR: Negative for chest pain, leg swelling, hypertension, CHF or palpitations GI: No nausea, vomiting, or diarrhea SKIN: See HPI PSYCH: Negative for sleep disturbance, mood disorder and recent psychosocial stressors HEMATOLOGY/LYMPHOLOGY : Negative for prolonged bleeding, bruising easily or swollen nodes ENDOCRINE: Negative for cold or heat intolerance, polyuria, polydipsia and goiter NEURO: No history of headaches, syncope, paralysis, seizures or tremors EXAM: BP 152/80 Pulse 78 Resp 14 Ht 176 cm (5' 9.29) Wt 92.1 kg (203 lb) BMI 29.73 kg/m? General Appearance: Well appearing, alert, in no acute distress, well-hydrated, well nourished.. Skin: <0.5 cm sebaceous cyst below right eyebrow. Squash ball sized lipoma on left upper back. Head: Normocephalic, no masses, lesions, tenderness or abnormalities. Eyes: Anicteric sclera. Pupils are equally round and reactive to light. Extraocular movements are intact. . Ears: External ears normal, canals clear. Oropharynx: Negative findings: lips normal without lesions, buccal mucosa normal, palate normal, tongue midline and normal, soft palate, uvula, and tonsils normal and Positive findings: dental caries. Neck: Supple, no adenopathy; thyroid symmetric, normal size, no bruits. Lungs: Lungs clear to auscultation. No wheezing, rhonchi, rales.. Heart: RRR without murmur, gallop, or rubs. No ectopy. Abdomen: Abdomen soft, non-tender. Bowel sounds normal. , Positive findings: hepatomegaly, liver edge palpable 2 below costal margin. Extremities: No deformities, edema, skin discoloration, clubbing or cyanosis. Good capillary refill. . Peripheral Pulses: Normal. Lymph Nodes: No cervical lymphadenopathy and No supracl (more content not included)... Normal [facility] Comprehensive metabolic 2000 panelon 03-30-2024 Albumin [Mass/Vol] 4.5 g/dL Normal 3.9-4.9 [facility] Comment on above: Order Comment: Speci men Type: BLOOD SPECIMENOrdering Facility: [facility] Address: [address] [place] [address] Performed By: #### 3 016-3, 29722-2, 2283-8, 96085-7 ####[facility] LABCLIA [id number] [place] [address] [place] ALP [Catalytic activity/Vol] 73 U/L Normal 38-113 [facility] Comment on above: Order Comment: Speci men Type: BLOOD SPECIMENOrdering Facility: [facility] Address: [address] [place] [address] Performed By: #### 3 016-3, 67998-2, 2283-8, 41381-1 ####[facility] LABCLIA [id number] [place] [address] [place] ALT [Catalytic activity/Vol] 31 U/L Normal 10-54 [facility] Comment on above: Order Comment: Speci men Type: BLOOD SPECIMENOrdering Facility: [facility] Address: [address] [place] [address] Performed By: #### 3 016-3, 45431-6, 2284-8, 60985-0 ####[facility] LABCLIA [id number] [place] [address] [place] Anion gap [Moles/Vol] 11 mmol/L Normal 8-15 [facility] Comment on above: Order Comment: Speci men Type: BLOOD SPECIMENOrdering Facility: [facility] Address: [address] [place] [address] Performed By: #### 3 016-3, 09523-2, 2284-8, 63190-3 ####[facility] LABCLIA [id number] [place] [address] [place] AST [Catalytic activity/Vol] 19 U/L Normal 14-40 [facility] Comment on above: Order Comment: Speci men Type: BLOOD SPECIMENOrdering Facility: [facility] Address: [address] [place] [address] Performed By: #### 3 016-3, 93548-5, 2283-8, 14640-4 ####[facility] LABCLIA [id number] [place] [address] [place] Bilirubin [Mass/Vol] 0.3 mg/dL Normal 0.2-1.3 [facility] Comment on above: Order Comment: Speci men Type: BLOOD SPECIMENOrdering Facility: [facility] Address: [address] [place] [address] Performed By: #### 3 016-3, 29081-0, 2283-8, 09752-1 ####[facility] LABCLIA [id number] [place] [address] [place] Calcium [Mass/Vol] 9.1 mg/dL Normal 8.5-10.2 [facility] Comment on above: Order Comment: Speci men Type: BLOOD SPECIMENOrdering Facility: [facility] Address: [address] [place] [address] Performed By: #### 3 016-3, 77966-8, 2284-8, 74629-8 ####[facility] LABCLIA [id number] [place] [address] [place] Chloride [Moles/Vol] 108 mmol/L High 98-107 [facility] Comment on above: Order Comment: Speci men Type: BLOOD SPECIMENOrdering Facility: [facility] Address: [address] [place] [address] Performed By: #### 3 016-3, 40483-6, 2284-8, 11288-4 ####[facility] LABCLIA [id number] [place] [address] [place] CO2 [Moles/Vol] 22 mmol/L Normal 22-30 [facility] Comment on above: Order Comment: Speci men Type: BLOOD SPECIMENOrdering Facility: [facility] Address: [address] [place] [address] Performed By: #### 3 016-3, 20893-2, 2284-8, 48246-0 ####[facility] LABCLIA [id number] [place] [address] [place] Creatinine [Mass/Vol] 0.78 mg/dL Normal 0.73-1.22 [facility] Comment on above: Order Comment: Speci men Type: BLOOD SPECIMENOrdering Facility: [facility] Address: [address] [place] [address] Performed By: #### 3 016-3, 49271-7, 2284-8, 05402-2 ####[facility] LABCLIA [id number] [place] [address] [place] Creatinine and Glomerular filtration rate.predicted panel (S/P/Bld) 117 mL/min/1.73m??? Normal >=60 [facility] Comment on above: Order Comment: Speci men Type: BLOOD SPECIMENOrdering Facility: [facility] Address: [address] [place] [address] Result Comment: Astrid mated Glomerular Filtration Rate (eGFR) is calculated using the 2020 CKD-EPI creatinine equation. This equation utilizes serum creatinine, sex, and age as parameters. The creatinine assay has traceable calibration to isotope dilution-mass spectrometry. Refer to KDIGO guidelines for clinical interpretation. In patients with unstable renal function, e.g. those with acute kidney injury, the eGFR may not accurately reflect actual GFR. Performed By: #### 3 016-3, 93748-0, 2283-11, ####[facility] LABCLIA [id number] [address] [address] [place] Glucose [Mass/Vol] 104 mg/dL High 74-99 [facility] Comment on above: Order Comment: Esteban guy Type: BLOOD SPECIMENOrdering Facility: [facility] Address: [address] [place] [address] Result Comment: The [place] Diabetes Association (ADA) provides guidance for cutoff values for fasting glucose and random glucose. The ADA defines fasting as no caloric intake for at least 8 hours. Fasting plasma glucose results between 100 to 125 mg/dL indicate increased risk for diabetes (prediabetes). Fasting plasma glucose results greater than or equal to 126 mg/dL meet the criteria for diagnosis of diabetes. In the absence of unequivocal hyperglycemia, results should be confirmed by repeat testing. In a patient with classic symptoms of hyperglycemia or hyperglycemic crisis, random plasma glucose results greater than or equal to 200 mg/dL meet the criteria for diagnosis of diabetes. Reference: Standards of Medical Care in Diabetes 2016, [place] Diabetes Association. Diabetes Care. 2016.39(Suppl 1). Performed By: #### 3 016-3, 15600-9, 2283-11, ####[facility] LABCLIA [id number] [place] [id number] [place] Potassium [Moles/Vol] 4.6 mmol/L Normal 3.7-5.1 [facility] Comment on above: Order Comment: Esteban guy Type: BLOOD SPECIMENOrdering Facility: [facility] Address: [address] [place] [address] Performed By: #### 3 016-3, 67049-9, 2283-11, 62880-7 ####[facility] LABCLIA [id number] [address] [address] [place] Protein [Mass/Vol] 7.2 g/dL Normal 6.3-8.0 [facility] Comment on above: Order Comment: Speci men Type: BLOOD SPECIMENOrdering Facility: [facility] Address: [address] [place] [address] Performed By: #### 3 016-3, 51752-2, 2284-8, 31947-1 ####[facility] LABCLIA [id number] [place] [address] [place] Sodium [Moles/Vol] 141 mmol/L Normal 136-144 [facility] Comment on above: Order Comment: Speci men Type: BLOOD SPECIMENOrdering Facility: [facility] Address: [address] [place] [address] Performed By: #### 3 016-3, 11073-2, 2283-8, 92146-5 ####[facility] LABCLIA [id number] [place] [address] [place] Urea nitrogen [Mass/Vol] 15 mg/dL Normal 9-24 [facility] Comment on above: Order Comment: Speci men Type: BLOOD SPECIMENOrdering Facility: [facility] Address: [address] [place] [address] Performed By: #### 3 016-3, 26573-0, 2284-8, 06529-3 ####[facility] LABCLIA [id number] [place] [address] [place] Folate SerPl-mCncon 03-30-20 24 Folate [Mass/Vol] 18.8 ng/mL Normal >4.7 [facility] Comment on above: Order Comment: Speci men Type: BLOOD SPECIMENOrdering Facility: [facility] Address: [address] [place] [address] Performed By: #### 3 016-3, 30814-4, 2284-8, 48234-1 ####[facility] LABCLIA [id number] [place] [address] [place] HBV core Ab Ser Qlon 024 HBV core Ab Ql (S) Negative Normal Negative [facility] Comment on above: Order Comment: Speci men Type: BLOOD SPECIMENOrdering Facility: [facility] Address: [address] [place] [address] Result Comment: No e vidence of current or past infection with Hepatitis B virus. Should recent infection be suspected, repeat testing may be considered 3-4 weeks after this draw. Performed By: #### 2 2322-2, 09002-3, 5-3 ####[facility] LABCLIA [id number] [place] [address] [place] HBV surface Ab Ql (S)on 03-17 HBV surface Ab Qn (S) <8.00 Normal [facility] Comment on above: Order Comment: Speci men Type: BLOOD SPECIMENOrdering Facility: [facility] Address: [address] [place] [address] Result Comment: <8 m IU/mL: No serological evidence of immunity to Hepatitis B Virus. >/= 8 to <12 mIU/mL: No serological evidence of immunity to Hepatitis B Virus. >/= 12 mIU/mL: Consistent with serological evidence of immunity to Hepatitis B Virus. Performed By: #### 2 2322-2, 03924-0, 5194-3 ####[facility] LABCLIA [id number] [place] [address] [place] HBV surface Ab Ser Qlon 03-17 HBV surface Ab Ql (S) Negative Normal [facility] Comment on above: Order Comment: Speci men Type: BLOOD SPECIMENOrdering Facility: [facility] Address: [address] [place] [address] Result Comment: No s erological evidence of immunity to Hepatitis B Virus. Performed By: #### 2 2322-2, 42433-6, 5-3 ####[facility] LABCLIA [id number] [place] [address] [place] HBV surface Ag Ser Qlon 03-17 HBV surface Ag Ql (S) Negative Normal Negative [facility] Comment on above: Order Comment: Speci men Type: BLOOD SPECIMENOrdering Facility: [facility] Address: [address] [place] [address] Performed By: #### 2 2322-2, 48691-1, 5195-3 ####[facility] LABIA [id number] [place] [address] [place] HCV Ab Ser Qlon 03-30-2024 HCV Ab Ql (S) Negative Normal Negative [facility] Comment on above: Order Comment: Speci men Type: BLOOD SPECIMENOrdering Facility: [facility] Address: [address] [place] [address] Result Comment: The result suggests no evidence of active infection with Hepatitis C virus. Should recent infection be suspected, repeat testing may be considered 4-6 weeks after this draw. Performed By: #### 1 6128-1 ####[facility] LABIA [id number] [place] [address] [place] HbA1c (Bld)on 03-30-2024 Average glucose Estimated from glycated hemoglobin (Bld) [Mass/Vol] 105 mg/dL Normal [facility] Comment on above: Order Comment: Speci men Type: BLOOD SPECIMENOrdering Facility: [facility] Address: [address] [place] [address] Result Comment: eAG: (Estimated average glucose) is a calculated value from HgbA1c and is outbound telemarketing representative of the average blood glucose level in the last 2-3 month period. Performed By: #### 5 5454-3 ####[facility] LABIA [id number] [place] [address] [place] HbA1c (Bld) [Mass fraction] 5.3 % Normal 4.3-5.6 [facility] Comment on above: Order Comment: Speci men Type: BLOOD SPECIMENOrdering Facility: [facility] Address: [address] [place] [address] Result Comment: [place] Diabetes Association guidelines indicate that patients with HgbA1c in the range 5.7-6.4% are at increased risk for development of diabetes, and intervention by lifestyle modification may be beneficial. HgbA1c greater or equal to 6.5% is considered diagnostic of diabetes. Performed By: #### 5 5454-3 ####[facility] LABCLIA [id number] [place] [address] [place] Lipid 1996 panelon 4 Cholesterol [Mass/Vol] 202 mg/dL High <200 [facility] Comment on above: Order Comment: Esteban guy Type: BLOOD SPECIMENOrdering Facility: [facility] Address: [address] [place] [address] Result Comment: <200 mg/dL, Desirable 200-239 mg/dL, Borderline high >239 mg/dL, High Performed By: #### 3 016-3, 05797-4, 2283-8, 03162-3 ####[facility] LABCLIA [id number] [address] [place] Cholesterol in HDL [Mass/Vol] 44 mg/dL Normal >39 [facility] Comment on above: Order Comment: Esteban guy Type: BLOOD SPECIMENOrdering Facility: [facility] Address: [address] [place] [address] Result Comment: 40-5 9 mg/dL, Acceptable >59 mg/dL, High: Negative risk factor for coronary heart disease <40 mg/dL, Low: Positive risk factor for coronary heart disease Performed By: #### 3 016-3, 08235-2, 4-8, 60913-1 ####[facility] LABCLIA [id number] [address] [place] Cholesterol in LDL [Mass/Vol] 128 mg/dL High <100 [facility] Comment on above: Order Comment: Esteban guy Type: BLOOD SPECIMENOrdering Facility: [facility] Address: [address] [place] [address] Result Comment: <100 mg/dL, Optimal 100-129 mg/dL, Near optimal/above optimal 130-159 mg/dL, Borderline high 160-189 mg/dL, High >189 mg/dL, Very high Secondary prevention optimal LDL Cholesterol levels are recommended to be < 70 mg/dL Performed By: #### 3 016-3, 19906-4, 2284-8, 77694-4 ####[facility] LABCLIA [id number] [place] [address] [place] Cholesterol in LDL/Cholesterol in HDL [Mass ratio] 2.91 {ratio} High <2.54 [facility] Comment on above: Order Comment: Speci men Type: BLOOD SPECIMENOrdering Facility: [facility] Address: [address] [place] [address] Result Comment: Refe alexsandrace: 1. National Cholesterol Education Program ATP III Guideline At-A-Glance Quick Desk Reference: National Heart, Lung, and Blood [place]. National Institutes of Health. 2001: NIH Publication No. 01-3305. 2. An International Atherosclerosis Society position paper: global recommendations for the management of dyslipidemia: executive summary, Atherosclerosis. 2014: 232(2):410-413. Performed By: #### 3 016-3, 80214-2, 2283-8, 75912-6 ####[facility] LABCLIA [id number] [place] [address] [place] Cholesterol in VLDL [Mass/Vol] 30 mg/dL High <30 [facility] Comment on above: Order Comment: Speci men Type: BLOOD SPECIMENOrdering Facility: [facility] Address: [address] [place] [address] Performed By: #### 3 016-3, 49733-1, 2283-8, 94511-3 ####[facility] LABCLIA [id number] [place] [address] [place] Cholesterol non HDL [Mass/Vol] 158 mg/dL High <130 [facility] Comment on above: Order Comment: Speci men Type: BLOOD SPECIMENOrdering Facility: [facility] Address: [address] [place] [address] Result Comment: <130 mg/dL, Optimal 130-159 mg/dL, Near optimal/above optimal 160-189 mg/dL, Borderline high 190-219 mg/dL, High >219 mg/dL, Very high Secondary prevention optimal non HDL Cholesterol levels are recommended to be <100 mg/dL Performed By: #### 3 016-3, 91775-3, 2284-8, 27576-1 ####[facility] LABCLIA [id number] [place] [address] [place] Cholesterol.total/Chol esterol in HDL [Mass ratio] 4.59 {ratio} Normal <5.10 [facility] Comment on above: Order Comment: Speci men Type: BLOOD SPECIMENOrdering Facility: [facility] Address: [address] [place] [address] Performed By: #### 3 016-3, 50020-4, 2283-8, 02452-8 ####[facility] LABCLIA [id number] [place] [address] [place] FASTING TIME 2 hrs Normal [facility] Comment on above: Order Comment: Speci men Type: BLOOD SPECIMENOrdering Facility: [facility] Address: [address] [place] [address] Performed By: #### 3 016-3, 01028-2, 8, 23938-1 ####[facility] LABCLIA [id number] [place] [address] [place] Triglyceride [Mass/Vol] 152 mg/dL High <150 [facility] Comment on above: Order Comment: Speci men Type: BLOOD SPECIMENOrdering Facility: [facility] Address: [address] [place] [address] Result Comment: <150 mg/dL, Normal 150-199 mg/dL, Borderline high 200-499 mg/dL, High >499 mg/dL, Very high Performed By: #### 3 016-3, 37354-4, 2284-8, 02364-3 ####[facility] LABCLIA [id number] [place] [id number] [place] TSH SerPl-aCncon 03-30-2024 TSH Qn 1.350 m[IU]/L Normal 0.270-4.200 [facility] Comment on above: Order Comment: Speci men Type: BLOOD SPECIMENOrdering Facility: [facility] Address: [address] [place] [address] Performed By: #### 3 016-3, 77658-6, 2284-8, 12168-0 ####[facility] LABCLIA [id number] [place] [address] [place] VITAMIN B1 (THIAMINE), WHOLE BLOODon 03-30-2024 Thiamine (Bld) [Moles/Vol] 252.4 nmol/L High 84.3-213.3 [facility] Comment on above: Order Comment: Speci malena Type: BLOOD SPECIMEN Ordering Facility: [facility] Address: [address] [place] [address] Result Comment: This assay measures the concentration of thiamine diphosphate (TDP), the primary active form of vitamin B1. Approximately 90 percent of vitamin B1 present in whole blood is TDP. Thiamine and thiamine monophosphate, which comprise the remaining 10 percent, are not measured. This test was developed, and its performance characteristics determined by the [facility] Department of Pathology and Laboratory Medicine. It has not been cleared or approved by the FDA. The [facility] Department of Pathology and Laboratory Medicine is regulated under CLIA as qualified to perform high-complexity testing. This test is used for clinical purposes. It should not be regarded as investigational or for research. Performed By: #### B 1WB #### [facility] LAB CLIA [id number] [address] [place], [place] [id number] [place] Emergency Department Summary on 06-17-2023 Emergency Department Summary [facility] Medical Records Department [address] [place] [address] Emergency Department Summary 06/17/23 MR#: [id number] Acct: [id number] Name: FAUSTINO NORIEGA Rep #: [id number] : 1985 38 From: Clay Armas DO PCP: Care Physician,No Primary Status:DEP ER Location: ED HPI History of Present Illness Chief Complaint: Lower Extremity Injury Informant: patient Narrative Narrative: Patient is a 38-year-old male with history of right ankle fracture. He states that he was treated outpatient surgery on June 15 secondary to the fracture and discharged home. He states since being at home he has been taking his pain medication as directed but as time is gone by he now has begun to feel an increased pain as well as a numbness/tingling sensation in his right foot. He states when he originally broke the ankle/foot the initial splint was put on too tight and led to lack of blood flow. He states that this feels similar nature which concerned him and therefore he presents for evaluation [facility] Medical History Alcohol use Crutches as ambulation aid Heartburn History of irregular heartbeat Non-smoker Home Medications hydrocodone-acetamino phen 5-325mg 5mg-325mg 1 tab PO Q6H PRN PRN Pain 3 days #12 TABLETS 05/27/23 [Rx Last Taken Unknown] aspirin 325 mg tablet 325 mg PO DAILY #20 tabs 06/16/23 [Rx Last Taken Unknown] doxycycline hyclate 100 mg capsule 100 mg PO DAILY #10 caps 06/16/23 [Rx Last Taken Unknown] oxycodone-acetaminoph en 5 mg-325 mg tablet 1 tab PO Q8H PRN pain 7 days #28 tabs 06/16/23 [Rx Last Taken Unknown] diazepam 5 mg tablet (Valium) 5 mg PO TID PRN muscle pain/spasm 5 days #15 tabs 06/17/23 [Rx Last Taken Unknown] ibuprofen 600 mg tablet 600 mg PO 4X/DAY PRN PRN pain #40 tabs 06/17/23 [Rx Last Taken Unknown] Allergy/AdvReac Type Severity Reaction Status Date / Time No Known Allergies Allergy Verified 05/27/23 15:43 Surgical History History of tonsillectomy Social History Smoking Status: Never smoker ROS ROS ED Constitutional Constitutional ED: Denies chills or fever(s) ENT ENT ED: Denies sore throat Cardiovascular Cardiovascular: Denies chest pain Respiratory/Chest Respiratory/Chest: Denies cough or dyspnea Gastrointestinal Gastrointestinal: Denies abdominal pain, diarrhea, nausea or vomiting Genitourinary Genitourinary ED: Denies dysuria Musculoskeletal Musculoskeletal: Reports other Details: Positive right ankle/foot pain Integumentary Denies rash Neurologic Neurologic: Reports paresthesias; Denies headache(s) Hematologic/Lymphatic Hematologic/Lymphatic : Denies easy bleeding or easy bruising EXAM Physical Exam Const Vital Signs: 06/17/23 04:12 06/17/23 05:39 Temperature 98.3 F 97.5 F L Temperature Source Temporal Pulse Rate 82 74 Respiratory Rate 16 16 Blood Pressure 129/85 H 119/88 H Blood Pressure Mean 99 98 Pulse Ox 100 99 Positive well nourished and well developed General Appearance ED: well developed HEENT HEENT Narrative: Normocephalic atraumatic Eyes PERRL and EOMs intact bilaterally Neck supple Resp normal respiratory effort and clear to auscultation bilaterally Cardio regular rate and regular rhythm Extremity Extremity Narrative: Right lower extremity is neurovascularly intact. Dorsalis pedis pulses are equal. Capillary refills less than 2 seconds bilaterally. Compartments are soft and compressible going against compartment syndrome. Patient has postsurgical incisions to both the medial and lateral aspect of the ankle that are clean dry and intact. There is soft tissue swelling and ecchymosis present consistent with his recent surgery without obvious joint effusion. Negative Homans' sign bilaterally Remainder of the exam is normal. Neuro oriented x3, CN's II-XII intact bilaterally and no sensory deficits noted Sensorium / Orientation: alert Psych mental status grossly normal Skin Skin Narrative: Soft tissue changes to the right ankle/foot as documented above MDM MDM MDM Narrative Medical decision making narrative: Patient presented to the ER with stable vitals. He reported sensation of numbness tingling increased pain in his right ankle and foot. With his recent surgical procedure there is concern for compartment syndrome versus DVT versus infection versus arterial occlusion. The patient's dorsalis pedis pulse is strong and equal bilaterally with normal capillary refill and temperature going against arterial occlusion. He does not have any calf tenderness going against DVT. He does not have a fever nor there are any changes of erythema. No discharge lymphangitic streaking to suggest infection. With soft compressible compar (more content not included)... Normal [facility] Ankle min 3 Viewson 06-16-19 Ankle min 3 Views [facility] [address] [place] [address] Ankle min 3 Views MR#: [id number] Acct: [id number] Name: FAUSTINO NORIEGA Rep #: [id number] : 1985 M 38 From: Kareem Hendrix MD PCP: Care Physician,No Primary Status: [facility] Study: Ankle min 3 Views Date of Exam: 06/16/23 Exam# [id number] Ordering Dr: Sherita Flores DPM [id number] STUDY: X-RAY - RIGHT ANKLE REASON FOR EXAM: Male, 38 years old. Postop ORIF (PACU) TECHNIQUE: 3 view(s) of the ankle. COMPARISON: June 16, 2023 FINDINGS: Postsurgical changes noted status post open reduction internal fixation of trimalleolar fracture with fracture fragments in anatomic alignment and position.. Normal medial and lateral malleoli. Normal tibiotalar articulation and ankle mortise. Normal visualized talus and calcaneus. The visualized subtalar, talonavicular, calcaneocuboid and tarsal articulations are normal. The soft tissue structures are unremarkable. RAD/Ankle min 3 Views IMPRESSION: Status post ORIF bilateral trimalleolar fractures Electronically Signed: Kareem Hendrix MD at 16:17 EST , CC: LEE Flores; No Primary Care Physician Church History Teacher: Signed Normal [facility] Ankle min 3 Views [facility] [address] [place] [address] Ankle min 3 Views MR#: [id number] Acct: [id number] Name: FAUSTINO NORIEGA Rep #: [id number] : 1985 M 38 From: Jim Gr DO PCP: Care Physician,No Primary Status: [facility] Study: Ankle min 3 Views Date of Exam: 06/16/23 Exam# [id number] Ordering Dr: Sherita Flores DPM [id number] INDICATION: FX EXAMINATION/TECHNIQUE : X-RAY - RIGHT XR Ankle 8 intraoperative Views COMPARISON: __ FINDINGS: Intraoperative images demonstrate ORIF at the distal tibia and fibula . Bony details are limited. RAD/Ankle min 3 Views IMPRESSION: Intraoperative images from ORIF of the fibula and tibia. Electronically Signed: Jim Gr DO at 19:20 EST Reading Location ID and State: [facility] / [place] Tel [phone], Service support , CC: LEE Flores; No Primary Care Physician Church History Teacher: Signed Normal [facility] Discharge Instructionon Discharge Instruction [facility] Medical Records Department [address] [place] [address] Instructions for Home/Discharge Instructions 06/16/23 1206 MR#: [id number] Acct: [id number] Name: FAUSTINO NORIEGA Rep #: [id number] : 1985 38 From: Sherita Flores DPM PCP: Care Physician,No Primary Status:[facility] Discharge Instructions Diet Discharge Diet: No restrictions Activity Discharge Activity: May Not Drive and May Shower (Please utilize cast bag covering when showering to keep dressings clean, dry, and intact to the right leg) Weight Bearing Status: No weight bearing (Please remain nonweightbearing to the right lower extremity with the assistance of crutches) Keep extremity elevated above heart level: Right Leg (Please elevate right lower extremity at all times of rest for postoperative edema control) Dressing / Incision Call your doctor if you observe: Fever of 101 or Higher, Shortness of breath, Chest pain, Calf discomfort and Uncontrolled pain Change Dressing in: do not change dressing Remove Dressing in: leave in place till F/U (Do not remove dressing and leave dressing in place. Physician will change dressing at first postoperative appointment) Cleanse incision/area with: Do not get Incision Wet and Keep Dressing Clean Dry (Please keep dressing clean, dry, and intact to the right lower extremity) Follow Up Care Please Follow Up With: Sherita Flores DPM When: Patient has first postoperative appointment with me in office early next week Test Results: Test results from this visit will be discussed in further detail at your follow-up appointment, if applicable. Discharge Plan Admission Attending Provider: Sherita Flores Primary Care Provider: Care Physician,No Primary Discharge Orders/Prescriptions Prescriptions: New doxycycline hyclate 100 mg capsule 100 mg PO DAILY Qty: 10 0RF aspirin 325 mg tablet 325 mg PO DAILY Qty: 20 0RF oxycodone-acetaminoph en 5-325 mg tablet 1 tab PO Q8H PRN (Reason: pain) 7 Days Qty: 28 0RF No Action hydrocodone-acetamino phen [hydrocodone-acetamin ophen] 5-325 mg tablet 1 tab PO Q6H PRN PRN (Reason: Pain) 3 Days Qty: 12 0RF Referrals / Follow Up: Care Physician,No Primary [Primary Care Provider] - Disposition Disposition (needs filled in before D/C Order can be placed): Home, Self Care 06/16/23 1647 Sherita Flores DPM CC: No Primary Care Physician Signed Normal [facility] Operative Reporton 4 Operative Report [facility] Medical Records Department [address] [place] [address] Operative Report 06/16/23 1702 MR#: [id number] Acct: [id number] Name: FAUSTINO NORIEGA Rep #: [id number] : 1985 38 From: Sherita Flores DPM PCP: Care Physician,No Primary Status:[facility] Location: [place] [address] Problems Associated Problem List Diagnoses (1) Displaced trimalleolar fracture of right lower leg, initial encounter for closed fracture: (2) Displaced Maisonneuve's fracture of right leg, initial encounter for closed fracture: (3) Syndesmotic disruption of right ankle: (4) Pain in right lower leg: Report of Operation Date of Procedure: 06/16/23 Pre-Operative Diagnosis: 1. Displaced trimalleolar ankle fracture right ankle 2. Displaced Maisonneuve fracture right ankle 3. Disruption of syndesmosis right ankle 4. Pain right lower extremity Post-Operative Diagnosis: 1. Displaced trimalleolar ankle fracture right ankle 2. Displaced Maisonneuve fracture right ankle 3. Disruption of syndesmosis right ankle 4. Pain right lower extremity Surgery/Procedure Performed:: 1. ORIF displaced trimalleolar ankle fracture Right foot 2. Repair of syndesmosis Right ankle 3. Application of AO splint right lower extremity Description of Surgical Findings:: See operative note for final Surgeon: Sherita Flores beef cattle specialist: Andriy Garcia DPM PGY-2 Type of Anesthesia: General and Local (10 cc one-to-one mixture 1% lidocaine plain and 0.5% Marcaine plain; popliteal block postoperatively) Anesthesiologist: Tomas Nelson Specimen's removed: None Drains: None Estimated Blood Loss (mL): < 5 mL Description of Procedure: HPI/indication: Patient is a 38-year-old male who was returning home from work evening of 05/26/2023 while walking up deck steps foot got trapped between the steps and he fell and had immediate pain in the right ankle with difficulty weightbearing. He did go to outside hospital with radiographs taken demonstrating Maisonneuve fracture of the fibula with medial malleolar fracture and syndesmotic disruption of the right ankle. He was placed into a posterior splint but did have to return a few hours later due to splint being too tight and thus was transitioned into a cam boot and instructed to remain nonweightbearing to the right lower extremity. He was referred to orthopedics for follow- up, but orthopedics did send him to podiatry for fixation of his fracture. He was then seen in office 06/01/23 with updated radiographs obtained and discussion for fracture fixation. Patient at that time did not have PCP and thus needed to establish care for medical clearance prior to surgical intervention. PCP was established and he was medically cleared prior to ORIF. He did return for final surgical discussion 06/07/2023 and procedure was discussed in detail. Discussed surgical intervention was necessary for unstable displaced Maisonneuve fracture/displaced trimalar ankle with syndesmotic instability. He voices standing the need for and wishes to proceed forward so that he may return to job at an active lifestyle. We discussed all possible benefits versus risk and the potential complications in detail. Advised patient risks include but are not limited to the following: Pain, continued pain, complex regional pain syndrome, deformity, continue deformity, recurrence, overcorrection, under correction, neuritis/numbness, swelling, scarring, poor cosmetic result, bleeding, hardware failure, symptomatic/painful hardware, need for further surgery/procedures, fracture, nonunion, delayed union, nonhealing/delayed healing, dehiscence, infection, blood clots, allergic reaction, transfer lesions, postoperative arthritis, weakness, shoe gear problems, inability to walk, inability to wear shoe gear, stroke, heart attack, addiction to pain medication, loss of function, loss of limb, loss of life. Patient expressed understanding and agreement with these. Patient was able to repeat these back. Typical postoperative course was reviewed. Patient expressed understanding and agreement and surgical consent was signed by patient freely. No promises were made, no guarantees were given. Diagnostic data was reviewed prior to surgical intervention. Patient was seen prior to intervention and operative limb was signed prior to entering the OR. He was scheduled to undergo ORIF of displaced Maisonneuve fracture/displaced trimalleolar right ankle fracture with syndesmotic instability at [facility] on 06/16/2023. Procedure: Under mild sedation patient was brought to the operating room placed on the table in supine position. He was secured to table with safety belt. [place] bump placed under right hip and right foot/leg was elevated with blanket bump. Following IV sedation and induction of general anesthetic a pneumatic thigh tourniquet was placed about the patient's left thigh. Next, a local (more content not included)... Normal [facility] Absolute lymphocyte countOrd ered By: Rommel Alonso on 06-05-2023 Lymphocytes Auto (Unsp spec) [#/Vol] 1.44 10*3/uL 0.83-4.51 [facility] Automated blood erythrocyte count (number/volume)Ordered By: Rommel Alonso on 06-05-2023 RBC (Bld) [#/Vol] 5.03 10*6/uL Normal 4.6-6.2 [facility] Comment on above: Order Comment: Order Date: 06/05/23 Order Info: 183-04 - CBCD Performed By: #### L 100.0100, L500.4050 #### [facility] [address] [place], [place], [address] Automated blood hematocrit ( percentage)Ordered By: Rommel Alonso on 06-05-2023 Hematocrit (Bld) [Volume fraction] 43.7 % Normal 40-54 [facility] Comment on above: Order Comment: Order Date: 06/05/23 Order Info: 183-04 - CBCD Performed By: #### L 100.0100, L500.4050 #### [facility] [address] [place], [place], [id number] Automated lymphocyte count a s percentage of total leukocytesOrdered By: Rommel Alonso on 06-05-2023 Lymphocytes/100 WBC Auto (Unsp spec) 14.8 % 19-41 [facility] Basophil percentageOrdered B y: Rommel Celeste on 06-05-2023 Basophils/100 WBC (Bld) 0.6 % Normal 0-1 [facility] Comment on above: Order Comment: Order Date: 06/05/23 Order Info: 183-04 - CBCD Performed By: #### L 100.0100, L500.4050 #### [facility] [address] [place], [place], [id number] Bilirubin [Mass/Vol] 0.60 mg/dL 0.20-1.00 [facility] Comment on above: For patients on eltr ombopag therapy, use of Dimension [place] TBIL is not recommended. Chloride [Moles/Vol] 108 mmol/L 98-107 [facility] Eosinophils/100 WBC (Bld) 2.4 % Normal 0-5 [facility] Comment on above: Order Comment: Order Date: 06/05/23 Order Info: 183-04 - CBCD Performed By: #### L 100.0100, L500.4050 #### [facility] [address] [place], [address] Glucose [Mass/Vol] 94 mg/dL 74-106 [facility] Hemoglobin (Bld) [Mass/Vol] 14.4 g/dL Normal 13.0-16.5 [facility] Comment on above: Order Comment: Order Date: 06/05/23 Order Info: 0184-1 - CBCD Performed By: #### L 100.0100, L500.4050 #### [facility] [address] [place], [address] Monocytes/100 WBC (Bld) 11.5 % High 0-10 [facility] Comment on above: Order Comment: Order Date: 06/05/23 Order Info: 018- - CBCD Performed By: #### L 100.0100, L500.4050 #### [facility] [address] [place], [address] Neutrophils (Bld) [#/Vol] 6.9 10*3/uL 2.0-7.7 [facility] Neutrophils/100 WBC (Bld) 70.5 % High 47-70 [facility] Comment on above: Order Comment: Order Date: 06/05/23 Order Info: 0184- - CBCD Performed By: #### L 100.0100, L500.4050 #### [facility] [address] [place], [address] Potassium [Moles/Vol] 3.8 mmol/L 3.5-5.1 [facility] Protein [Mass/Vol] 8.1 g/dL 6.4-8.2 [facility] Sodium [Moles/Vol] 140 mmol/L 136-145 [facility] WBC (Bld) [#/Vol] 9.8 10*3/uL Normal 4.4-11.0 [facility] Comment on above: Order Comment: Order Date: 06/05/23 Order Info: 0184-1 - CBCD Performed By: #### L 100.0100, L500.4050 #### [facility] [address] [place], [address] CBC W/Diff, Automatedon 05-18 Absolute Lymph 1.44 X10 3/uL Normal 0.83-4.51 [facility] Comment on above: Order Comment: Order Date: 06/05/23 Order Info: 018- - CBCD Performed By: #### L 100.0100, L500.4050 #### [facility] [address] [place], [address] Absolute Neut 6.9 X10 3/uL Normal 2.0-7.7 [facility] Comment on above: Order Comment: Order Date: 06/05/23 Order Info: 018- - CBCD Performed By: #### L 100.0100, L500.4050 #### [facility] [address] [place], [address] IG% 0.200 Normal 0.0-0.9 [facility] Comment on above: Order Comment: Order Date: 06/05/23 Order Info: 01807-16 - CBCD Result Comment: IG% - Immature Granulocytes (promyelocytes, myelocytes and metamyelocytes) > 1% indicates that a LEFT SHIFT is Present. Performed By: #### L 100.0100, L500.4050 #### [facility] [address] [place], [address] Lymphocytes/100 WBC (Bld) 14.8 % Low 19-41 [facility] Comment on above: Order Comment: Order Date: 06/05/23 Order Info: 018- - CBCD Performed By: #### L 100.0100, L500.4050 #### [facility] [address] [place], [address] Nucleated RBC (Bld) [#/Vol] 0 10*3/uL Normal 0-5 [facility] Comment on above: Order Comment: Order Date: 06/05/23 Order Info: 0184-1 - CBCD Performed By: #### L 100.0100, L500.4050 #### [facility] [address] [place], [address] RDW SD 40.7 fl Normal 35.1-43.9 [facility] Comment on above: Order Comment: Order Date: 06/05/23 Order Info: 0184-1 - CBCD Performed By: #### L 100.0100, L500.4050 #### [facility] [address] [place], [address] CBC W/Diff, AutomatedOrdered By: Rommel Alonso on 06-05-2023 MCH (RBC) [Entitic mass] 28.6 pg Normal 27.0-32.0 [facility] Comment on above: Order Comment: Order Date: 06/05/23 Order Info: 0184-1 - CBCD Performed By: #### L 100.0100, L500.4050 #### [facility] [address] [place], [address] MCHC (RBC) [Mass/Vol] 33.0 g/dL Normal 32-36 [facility] Comment on above: Order Comment: Order Date: 06/05/23 Order Info: 0184-1 - CBCD Performed By: #### L 100.0100, L500.4050 #### [facility] [address] [place], [address] Platelet mean volume (Bld) [Entitic vol] 10.1 fL Normal 6.2-12.0 [facility] Comment on above: Order Comment: Order Date: 06/05/23 Order Info: 0184-1 - CBCD Performed By: #### L 100.0100, L500.4050 #### [facility] [address] [place], [address] Platelets (Bld) [#/Vol] 322 10*3/uL Normal 150-450 [facility] Comment on above: Order Comment: Order Date: 06/05/23 Order Info: 0184-1 - CBCD Performed By: #### L 100.0100, L500.4050 #### [facility] [address] [place], [address] Comprehensive Metabolic Prof ilon 06-05-2023 Albumin [Mass/Vol] 3.9 g/dL Normal 3.2-5.0 [facility] Comment on above: Order Comment: Order Date: 06/05/23 Order Info: 0786-1 - CMP Performed By: #### L 100.0100, L500.4050 #### [facility] [address] [place], [address] Albumin/Globulin [Mass ratio] 0.9 {ratio} Normal 0.9-2.4 [facility] Comment on above: Order Comment: Order Date: 06/05/23 Order Info: 0786-1 - CMP Performed By: #### L 100.0100, L500.4050 #### [facility] [address] [place], [address] ALK P 70 U/L Normal 45-117 [facility] Comment on above: Order Comment: Order Date: 06/05/23 Order Info: 0786-1 - CMP Performed By: #### L 100.0100, L500.4050 #### [facility] [address] [place], [address] ALT [Catalytic activity/Vol] 70 U/L High 16-61 [facility] Comment on above: Order Comment: Order Date: 06/05/23 Order Info: 0786-1 - CMP Performed By: #### L 100.0100, L500.4050 #### [facility] [address] [place], [address] AST [Catalytic activity/Vol] 31 U/L Normal 15-37 [facility] Comment on above: Order Comment: Order Date: 06/05/23 Order Info: 0786-1 - CMP Performed By: #### L 100.0100, L500.4050 #### [facility] [address] [place], [address] Bilirubin [Mass/Vol] 0.60 mg/dL Normal 0.20-1.00 [facility] Comment on above: Order Comment: Order Date: 06/05/23 Order Info: 0786-1 - CMP Result Comment: For patients on eltrombopag therapy, use of Dimension Dukedom TBIL is not recommended. Performed By: #### L 100.0100, L500.4050 #### [facility] [address] [place], [address] BUN/CRE 20.4 RATIO High 10-20 [facility] Comment on above: Order Comment: Order Date: 06/05/23 Order Info: 0786-1 - CMP Performed By: #### L 100.0100, L500.4050 #### [facility] [address] [place], [address] CA,Total 9.1 mg/dL Normal 8.5-10.1 [facility] Comment on above: Order Comment: Order Date: 06/05/23 Order Info: 0786-1 - CMP Performed By: #### L 100.0100, L500.4050 #### [facility] [address] [place], [address] Chloride [Moles/Vol] 108 mmol/L High 98-107 [facility] Comment on above: Order Comment: Order Date: 06/05/23 Order Info: 0786-1 - CMP Performed By: #### L 100.0100, L500.4050 #### [facility] [address] [place], [address] CO2 [Moles/Vol] 29.0 mmol/L Normal 21.0-32.0 [facility] Comment on above: Order Comment: Order Date: 06/05/23 Order Info: 0786-1 - CMP Performed By: #### L 100.0100, L500.4050 #### [facility] [address] [place], [address] Creatinine [Mass/Vol] 0.93 mg/dL Normal 0.70-1.30 [facility] Comment on above: Order Comment: Order Date: 06/05/23 Order Info: 0786-1 - CMP Result Comment: The validity of the calculated GFR GFRAA in patients over 70 years has not been determined. Clinical correlation is essential. Performed By: #### L 100.0100, L500.4050 #### [facility] [address] [place], [address] EST GFR - AA 117 mL/min Normal >60 [facility] Comment on above: Order Comment: Order Date: 06/05/23 Order Info: 0786-1 - CMP Result Comment: Afri can [place] GFR Calc Performed By: #### L 100.0100, L500.4050 #### [facility] [address] [place], [address] GAP 3 Low 5-15 [facility] Comment on above: Order Comment: Order Date: 06/05/23 Order Info: 0786-1 - CMP Performed By: #### L 100.0100, L500.4050 #### [facility] [address] [place], [address] GFR/1.73 sq M.predicted among non-blacks MDRD (S/P/Bld) [Vol rate/Area] 97 mL/min/{1.73_m2} Normal >60 [facility] Comment on above: Order Comment: Order Date: 06/05/23 Order Info: 0786-1 - CMP Result Comment: Non- GFR Calc Performed By: #### L 100.0100, L500.4050 #### [facility] [address] [place], [address] Globulin (S) [Mass/Vol] 4.2 g/dL Normal 2.2-4.2 [facility] Comment on above: Order Comment: Order Date: 06/05/23 Order Info: 0786-1 - CMP Performed By: #### L 100.0100, L500.4050 #### [facility] [address] [place], [address] Glucose [Mass/Vol] 94 mg/dL Normal 74-106 [facility] Comment on above: Order Comment: Order Date: 06/05/23 Order Info: 0786-1 - CMP Performed By: #### L 100.0100, L500.4050 #### [facility] [address] [place], [address] Potassium [Moles/Vol] 3.8 mmol/L Normal 3.5-5.1 [facility] Comment on above: Order Comment: Order Date: 06/05/23 Order Info: 0786-1 - CMP Performed By: #### L 100.0100, L500.4050 #### [facility] [address] [place], [address] Sodium [Moles/Vol] 140 mmol/L Normal 136-145 [facility] Comment on above: Order Comment: Order Date: 06/05/23 Order Info: 0786-1 - CMP Performed By: #### L 100.0100, L500.4050 #### [facility] [address] [place], [address] T PROT 8.1 g/dL Normal 6.4-8.2 [facility] Comment on above: Order Comment: Order Date: 06/05/23 Order Info: 0786-1 - CMP Performed By: #### L 100.0100, L500.4050 #### [facility] [address] [place], [address] Urea nitrogen [Mass/Vol] 19 mg/dL High 7-18 [facility] Comment on above: Order Comment: Order Date: 06/05/23 Order Info: 0786-1 - CMP Performed By: #### L 100.0100, L500.4050 #### [facility] [address] [facility] [facility] [place], [place], [address] Determination of erythrocyte mean corpuscular volume (MCV)Ordered By: Rommel Alonso on 06-05-2023 MCV (RBC) [Entitic vol] 86.9 fL Normal 80-94 [facility] Comment on above: Order Comment: Order Date: 06/05/23 Order Info: 0184-1 - CBCD Performed By: #### L 100.0100, L500.4050 #### [facility] [address] [place], [place], [address] Erythrocyte distribution wid th ratioOrdered By: Rommel Alonso on 06-05-2023 Erythrocyte distribution width (RBC) [Ratio] 13.0 % Normal 11.6-14.6 [facility] Comment on above: Order Comment: Order Date: 06/05/23 Order Info: 0184-1 - CBCD Performed By: #### L 100.0100, L500.4050 #### [facility] [address] [facility] [facility] [place], [place], [address] Erythrocyte distribution wid th standard deviationOrdered By: Rommel Alonso on 06-05-2023 Erythrocyte distribution width (RBC) [Entitic vol] 40.7 fL 35.1-43.9 [facility] Immature granulocytes/100 WB C Auto (Bld)Ordered By: Rommel Alonso on 06-05-2023 Immature granulocytes/100 WBC (Bld) 0.200 % 0.0-0.9 [facility] Comment on above: IG% - Immature Granu locytes (promyelocytes, myelocytes and metamyelocytes) > 1% indicates that a LEFT SHIFT is Present. Laboratory - Chemistry and C hemistry - challengeOrdered By: Rommel Alonso on 06-05-2023 Albumin/Globulin [Mass ratio] 0.9 {ratio} 0.9-2.4 [facility] ALP [Catalytic activity/Vol] 70 U/L 45-117 [facility] ALT [Catalytic activity/Vol] 70 U/L 16-61 [facility] CO2 [Moles/Vol] 29.0 mmol/L 21.0-32.0 [facility] Globulin (S) [Mass/Vol] 4.2 g/dL 2.2-4.2 [facility] Urea nitrogen/Creatinine [Mass ratio] 20.4 mg/mg 10-20 [facility] - Hematology and Cell countsOrdered By: Rommel Alonso on 06-05-2023 Nucleated RBC/100 WBC (Bld) [Ratio] 0 % 0-5 [facility] No Panel InformationOrdered By: Rommel Alonso on 06-05-2023 Estimated GFR (MDRD) Amer 117 mL/min >60 [facility] Comment on above: GFR Calc Estimated GFR (MDRD) Non-Af Amer 97 mL/min >60 [facility] Comment on above: Non- GFR Calc Serum or plasma calcium sheba urement (mass/volume)Ordered By: Rommel Alonso on 06-05-2023 Calcium [Mass/Vol] 9.1 mg/dL 8.5-10.1 [facility] Serum or plasma creatinine m easurement (mass/volume)Ordered By: Rommel Alonso on 06-05-2023 Creatinine [Mass/Vol] 0.93 mg/dL 0.70-1.30 [facility] Comment on above: The validity of the calculated GFR & GFRAA in patients over 70 years has not been determined. Clinical correlation is essential. Serum or plasma urea nitroge n measurement (mass/volume)Ordered By: Rommel Alonso on 06-05-2023 Urea nitrogen [Mass/Vol] 19 mg/dL 7-18 [facility] Thin prep Papanicolaou smear with manual screeningOrdered By: Rommel Alonso on 06-05-2023 Thin prep Papanicolaou smear with manual screening 3.9 g/dL 3.2-5.0 [facility] Thin prep Papanicolaou smear with manual screening 31 U/L 15-37 [facility] Thin prep Papanicolaou smear with manual screening 3 5-15 [facility] ED PROV NOTEon 05-27-2023 ED PROV NOTE HNO ID: [id number] Author: MATTHIEU CARTER MD Service: Emergency Medicine Author Type: Physician Type: ED Provider Notes Filed: 05/27/2023 14:09 Note Text: ED Provider Note Patient Name: Faustino Noriega : 1985 SERVICE DATE: 05/26/23 History Patient presents with: Ankle Injury This is a 38-year-old male who states he had a 2 bag in his hand was walking up the wooden garage steps and his foot and ankle slipped through the steps he twisted his ankle and then he fell. He is complaining of pain and swelling in his right ankle. He states when he moves it it does radiate up his tib-fib area. No numbness or tingling. No foot pain. No knee pain. No head trauma loss of consciousness or other injury. No previous injury of this right lower extremity. History reviewed. No pertinent past medical history. History reviewed. No pertinent surgical history. No family history on file. Social History Tobacco Use Smoking status: Never Smokeless tobacco: Current Types: Chew Vaping Use Vaping Use: Never used Substance and Sexual Activity Alcohol use: Yes Comment: 4-5 times a week Drug use: Never Sexual activity: Not on file ALLERGIES No Known Allergies Review of systems: All other pertinent systems reviewed and negative. Physical Exam Vitals [05/26/232040] BP Pulse Temp Temp src Resp SpO2 Weight Height 154/92 (!) 115 37.2 ?C (99 ?F) Temporal 16 99 % 86.5 kg (190 lb 9.6 oz) -- Physical Exam HENT: Head: Normocephalic. Right Ear: Tympanic membrane and external ear normal. Left Ear: Tympanic membrane and external ear normal. Nose: Nose normal. Mouth/Throat: Mouth: Mucous membranes are moist. Eyes: Extraocular Movements: Extraocular movements intact. Pupils: Pupils are equal, round, and reactive to light. Cardiovascular: Rate and Rhythm: Regular rhythm. Tachycardia present. Pulses: Normal pulses. Heart sounds: Normal heart sounds. Pulmonary: Effort: Pulmonary effort is normal. Breath sounds: Normal breath sounds. Chest: Chest wall: No tenderness. Abdominal: Palpations: Abdomen is soft. Tenderness: There is no abdominal tenderness. Genitourinary: Comments: Pelvis stable nontender Musculoskeletal: Cervical back: No tenderness. Comments: Right ankle has contusion and soft tissue swelling bilateral malleoli/mild deformity noted. There is also tenderness of the proximal fibula. Achilles tendon intact. Foot distally nontender. DP and PT pulses are 2+ capillary refill less than 2 seconds distally sensation and motor intact distally. No other extremity tenderness Skin: General: Skin is warm and dry. Capillary Refill: Capillary refill takes less than 2 seconds. Findings: Bruising (Right ankle) present. Comments: Intact Neurological: Mental Status: He is alert. Sensory: No sensory deficit. Motor: No weakness. Diagnostic Testing ED Labs Ordered and Reviewed - No data to display SPLINT APPLICATION Date/Time: 05/27/2023 12:15 AM Performed by: Matthieu Carter MD Authorized by: Matthieu Carter MD Pre-procedure details: Sensation: Normal Skin color: Ecchymosis about the ankle Procedure details: Laterality: Right Location: Ankle Ankle: R ankle Splint type: Short leg and ankle stirrup Supplies: Elastic bandage, cotton padding and Ortho-Glass (Webril) Post-procedure details: Pain: Improved Sensation: Normal Skin color: Unchanged Patient tolerance of procedure: Tolerated well, no immediate complications ED Course / Clinical Impression Clinical Impressions as of 05/27/23 1400 Closed displaced Maisonneuve fracture of right lower extremity, initial encounter MDM / Disposition / Plan 38-year-old with fall and injury to the right lower extremity. Clinically concern for Maisonneuve injury. X-rays of the ankle and tib-fib were performed and confirm this clinical suspicion. Patient did not want any narcotic pain medication was given ibuprofen. Initially the patient requested that I can contact with [facility] and when I did this I was put in contact with Dr. Ovalles who stated the patient could be splinted and follow-up as an outpatient. But subsequently the patient wanted to follow-up with a [facility] orthopedic surgeon. I spoke with Dr. Fontenot who also agreed that this patient could be splinted and seen as an outpatient. She stressed the importance of ice and elevation for this type of injury and early surgical repair but did state that the patient could be seen as an outpatient. The patient was placed in a posterior short leg splint along with an ankle stirrup explained the importance of this being completely nonweightbearing needing ice and elevation and close follow-up with orthopedic surgery for surgery. He voiced understanding. He did not want pain medications and wanted to use Tylenol and ibuprofen at home. Signs of compartment syndrome were reviewed with the patient a (more content not included)... Normal [facility] Emergency Department Summary on 05-27-2023 Emergency Department Summary [facility] Medical Records Department [address] [place] [address] Emergency Department Summary 05/27/23 MR#: [id number] Acct: [id number] Name: FAUSTINO NORIEGA Rep #: [id number] : 1985 38 From: Donnie Dahl MD PCP: Care Physician,No Primary Status:REG ER Location: ED HPI History of Present Illness Chief Complaint: Lower Extremity Injury Informant: patient Narrative Narrative: Patient complains of pain in the right foot and ankle area. Patient accidentally stepped through a step yesterday evening. He was seen at [facility]. X- rays were done. He brought in the copies of the report. This did have 2 small images on it. When I look at this he has proximal fibula fracture along with a medial malleolar fracture and a little bit of widening of the mortise. This is consistent with a Maisonneuve fracture. He states they did tell him that. He has surgery set for this coming week. He just feels like the splint is very tight. No new trauma. He has been elevating it. He does not want anything for pain. He states he only wants to take Tylenol. PFSH PFSH Medical History no medical history Allergy/AdvReac Type Severity Reaction Status Date / Time No Known Allergies Allergy Verified 05/27/23 15:43 Surgical History no surgical history Social History Smoking Status: Never smoker ROS ROS ED Constitutional Constitutional ED: Denies sweats Cardiovascular Cardiovascular: Denies chest pain or palpitations Respiratory/Chest Respiratory/Chest: Denies cough or dyspnea Gastrointestinal Gastrointestinal: Denies nausea or vomiting Musculoskeletal Musculoskeletal: Reports other Details: Right leg pain. ; Denies neck pain Integumentary Denies rash Neurologic Neurologic: Reports paresthesias and other Details: Patient did feel little tingling intermittently on the toes. But not currently. ; Denies weakness Hematologic/Lymphatic Hematologic/Lymphatic : Denies easy bleeding or easy bruising Allergic/Immunologic Allergic/Immunologic ED: Denies urticaria EXAM Physical Exam Narrative Exam Narrative: General: Patient is awake and alert. He has his leg elevated he does look reasonably comfortable though. HEENT shows no trauma. Heart is actually regular now. He is only about 90. He was tachycardic when he came in. But I think he states it was more painful walking into the department. Lungs are clear. Abdomen is benign. Extremities: He has a bulky dressing with sugar-tong type splint on his right lower extremity. Toes are intact. They are not cyanotic. His sensation is intact. No real pain with motion. Const Vital Signs: 05/27/23 15:45 Temperature 99.8 F H Temperature Source Temporal Pulse Rate 131 H Respiratory Rate 26 H Blood Pressure 153/102 H Blood Pressure Mean 119 Pulse Ox 99 Oxygen Delivery Method Room Air MDM MDM MDM Narrative Medical decision making narrative: I unwrapped multiple Aristeo wrap's, took down the dressing, remove the splint, then unwrapped further wrappings. Patient states he feels almost instantly better. He states the pain is markedly down. He just thinks it was tight. I did let him sit for about an hour. He still feels comfortable. I will get him a boot orthosis. That way he can remove it if needed. But he can adjust the air bladders. He has crutches already. I explained that even though these boots are oftentimes termed walking boots, he should not bear weight. He already has follow-up arranged. Discharge Plan Triage Chief Complaint: Lower Extremity Injury ED Provider: Dnonie Dahl Dx/Rx/DC Orders Clinical Impression: Tight cast, Maisonneuve fracture of right lower extremity Instructions: ED Leg Fracture Primary Care Provider: Care Physician,No Primary Referrals: Care Physician,No Primary [Primary Care Provider] - Activity Restrictions/Addition al Instructions: Follow-up as scheduled for surgery. Disposition Disposition: Home, Self Care What to do if you have Problems For any increased pain, shortness of breath, bleeding, nausea or vomiting, chest pain, or any unexpected problems, contact your Primary Care Provider. Call [facility] ([phone]) or report to the closest Emergency Room. Call 911 if necessary. 05/27/23 8256 Cosigner Signature (if applicable): CC: No Primary Care Physician Signed Normal [facility] XR ANKLE 3V AP/LAT/OBL RTon 05-27-2023 XR ANKLE 3V AP/LAT/OBL RT * * *Final Report* * * DATE OF EXAM: May 26 2023 10:05PM LDX 5297 - XR ANKLE 3V AP/LAT/OBL RT / PROCEDURE REASON: Fracture, ankle * * * * Physician Interpretation * * * * EXAM: XR TIBIA FIBULA 2V AP/LAT RT, XR ANKLE 3V AP/LAT/OBL RT CLINICAL INFORMATION ( PROVIDED BY ORDERING CLINICIAN) : PT FELL THROUGH A STEP. STATES PAIN IN RIGHT ANKLE INTO [place]. COMPARISON: None available FINDINGS: See impression. IMPRESSION: RIGHT tib-fib: Oblique mildly displaced fracture involving the proximal fibular diametaphysis. RIGHT ankle: Horizontal displaced fracture through the medial malleolus with widening of the medial clear space superiorly. Also widening of the distal tibiofibular syndesmosis. Surrounding soft tissue swelling. Remote trauma anterior talonavicular joint region on lateral view. Mild posterior calcaneal spurring. [employer] History Teacher: PSCRonnie Transcribe Date/Time: May 26 2023 10:23P Dictated by : SHERITA COMBS MD This examination was interpreted and the report reviewed and electronically signed by: SHERITA COMBS MD on May 26 2023 10:26PM EST [id number] N [facility] XR TIBIA FIBULA 2V AP/LAT RT on 05-27-2023 XR TIBIA FIBULA 2V AP/LAT RT * * *Final Report* * * DATE OF EXAM: May 26 2023 10:05PM LDX 5266 - XR TIBIA FIBULA 2V AP/LAT RT / PROCEDURE REASON: Fracture / Dislocation * * * * Physician Interpretation * * * * EXAM: XR TIBIA FIBULA 2V AP/LAT RT, XR ANKLE 3V AP/LAT/OBL RT CLINICAL INFORMATION ( PROVIDED BY ORDERING CLINICIAN) : PT FELL THROUGH A STEP. STATES PAIN IN RIGHT ANKLE INTO [place]. COMPARISON: None available FINDINGS: See impression. IMPRESSION: RIGHT tib-fib: Oblique mildly displaced fracture involving the proximal fibular diametaphysis. RIGHT ankle: Horizontal displaced fracture through the medial malleolus with widening of the medial clear space superiorly. Also widening of the distal tibiofibular syndesmosis. Surrounding soft tissue swelling. Remote trauma anterior talonavicular joint region on lateral view. Mild posterior calcaneal spurring. Church History Teacher: EMILY Transcribe Date/Time: May 26 2023 10:23P Dictated by : SHERITA COMBS MD This examination was interpreted and the report reviewed and electronically signed by: SHERITA COMBS MD on May 26 2023 10:26PM EST [id number] Normal [facility] XR CHEST 2V FRONTAL/LATon XR CHEST 2V FRONTAL/LAT * * *Final Report* * *DATE OF EXAM: Apr 14 2017 4:49PM MDX 5291 - XR CHEST 2V FRONTAL/LAT / REASON: pleurodynia * * * * Physician Interpretation * * * * EXAMINATION: FRONTAL AND LATERAL CHEST X-RAY, AP AND OBLIQUE X-RAYS OF LEFT RIBSHistory: pleurodyniaM: [id number]: None.RESULT:1. Lines, Tubes, and Devices: N/A2. Lungs and Pleura: The lungs are clear. No pleural effusion or pneumothorax. There is elevation of the right hemidiaphragm.3. Cardiomediastinal silhouette: Within normal limits.4. Bones: No acute osseous abnormality.--IMPRESS ION:NO ACUTE RADIOGRAPHIC ABNORMALITY OR RIB FRACTURE.Transcriptio nist: [facility] Transcribe Date/Time: Apr 14 2017 4:53PDictated by : CORTNEY JACOB MDThis examination was interpreted and the report reviewed and electronically signed by: CORTNEY JACOB MD on Apr 14 2017 4:57PM [id number] XR LUMBAR 3V AP/LAT/L5-S1on 04-14-2017 XR LUMBAR 3V AP/LAT/L5-S1 * * *Final Report* * *DATE OF EXAM: Apr 14 2017 4:50PM MDX 5228 - XR LUMBAR 3V AP/LAT/L5-S1 / REASON: low back pain * * * * Physician Interpretation * * * * EXAMINATION: XR LUMBAR 3V AP/LAT/[id number] HISTORY: pleurodynia, low back pain 2 monthsTechnique: XR LUMBAR 3V AP/LAT/L5-S1 --lumbar spine with 3 views on 3 imagesComparison: NoneRESULT:There are 5 lumbar-type vertebral bodies. No acute fracture or traumatic subluxation. There is mild narrowing of the L4-L5 and L5-S1 intervertebral disc spaces. The vertebral body heights and remaining intervertebral disc spaces are maintained. No significant degenerative spurring is appreciated. The pedicles are preserved. The sacroiliac joints are intact bilaterally.IMPRESSIO N:Mild narrowing of the L4-L5 and L5-S1 intervertebral disc spaces.Transcriptioni st: [facility] Transcribe Date/Time: Apr 14 2017 4:57PDictated by : Jennifer RAMIREZ examination was interpreted and the report reviewed and electronically signed by: CORTNEY JACOB MD on Apr 14 2017 4:59PM [id number] [facility] XR RIBS 2V AP/OBL LTon 04-14 XR RIBS 2V AP/OBL LT * * *Final Report* * *DATE OF EXAM: Apr 14 2017 4:50PM MDX 5582 - XR RIBS 2V AP/OBL LT / REASON: pleurodynia, low back pain * * * * Physician Interpretation * * * * EXAMINATION: FRONTAL AND LATERAL CHEST X-RAY, AP AND OBLIQUE X-RAYS OF LEFT RIBSHistory: pleurodyniaM: [id number]: None.RESULT:1. Lines, Tubes, and Devices: N/A2. Lungs and Pleura: The lungs are clear. No pleural effusion or pneumothorax. There is elevation of the right hemidiaphragm.3. Cardiomediastinal silhouette: Within normal limits.4. Bones: No acute osseous abnormality.--IMPRESS ION:NO ACUTE RADIOGRAPHIC ABNORMALITY OR RIB FRACTURE.Transcriptio nist: PSCB Transcribe Date/Time: Apr 14 2017 4:53PDictated by : Jennifer RAMIREZ examination was interpreted and the report reviewed and electronically signed by: CORTNEY JACOB MD on Apr 14 2017 4:57PM [id number] [facility] US ABDOMEN COMPLETEon 2016 US ABDOMEN COMPLETE * * *Final Report* * *DATE OF EXAM: Apr 11 2017 8:06AM MARY ALICE 1040 - US ABDOMEN COMPLETE / REASON: r17 unspecified jaundice r10.13 epigastric pain * * * * Physician Interpretation * * * * COMPLETE ABDOMINAL ULTRASOUNDHISTORY: Unspecified jaundice, epigastric painCOMPARISON: None.TECHNIQUE: Sonography of the abdomen was performed. Images were obtained and stored in a permanent archive.RESULT:Pancre as: Portions obscured: Head and tail Lesions: NoneLiver: Echotexture: Within normal limits Echogenicity: Normal Surface contour: Smooth Lesions: NoneBiliary: Intrahepatic Biliary Dilation: Absent CBD: 4 mm, normal Gallbladder: Present -Cholelithiasis: Absent -Wall thickening: Absent No pericholecystic fluid, negative sonographic Madera'sSpleen: Craniocaudal length: 10.2 cm, normal Lesions: NoneRight Kidney: Length: 9.8 cm. Lesions: none Hydronephrosis: noneLeft kidney: Length: 10.4 cm. Lesions: none Hydronephrosis: noneIVC: Imaged segment is patent.Abdominal Aorta: PatentAscites: None.IMPRESSION:No significant abnormality is identified.Transcript ionist: EMILY Transcribe Date/Time: Apr 11 2017 8:10ADictated by : CORTNEY JACOB MDThis examination was interpreted and the report reviewed and electronically signed by: CORTNEY JACOB MD on Apr 11 2017 8:14AM [id number] IACN Normal [facility] Vital Signs Date Time Vital Sign Value Performing Clinician Jena mcclure 11-26-2024 07:11040 Body height 176 cm Franklin Iyer MD Work Phone: [facility] 11-26-2024 07:110400 Body mass index (BMI) [Ratio] 28.41 kg/m2 Franklin Iyer MD Work Phone: [facility] 11-26-2024 07:11040 Body weight 88 kg Franklin Iyer MD Work Phone: [facility] 11-26-2024 07:110400 Diastolic blood pressure 84 mm[Hg] Franklin Iyer MD Work Phone: [facility] 11-26-2024 07:11-0400 Heart rate 52 /min Franklin Iyer MD Work Phone: [facility] 11-26-2024 07:11-0400 SaO2% (BldA) [Mass fraction] 97 % Franklin Iyer MD Work Phone: [facility] 11-26-2024 07:11-0400 Systolic blood pressure 130 mm[Hg] Franklin Iyer MD Work Phone: [facility] 04-30-2024 07:21-0500 Body mass index (BMI) [Ratio] 28.41 kg/m2 Franklin Iyer MD Work Phone: [facility] 04-30-2024 07:21-0500 Body weight 88 kg Franklin Iyer MD Work Phone: [facility] 04-30-2024 07:21-0500 Diastolic blood pressure 70 mm[Hg] Franklin Iyer MD Work Phone: [facility] 04-30-2024 07:21-0500 Heart rate 66 /min Franklin Iyer MD Work Phone: [facility] 04-30-2024 07:21-0500 Respiratory rate 16 /min Franklin Iyer MD Work Phone: [facility] 04-30-2024 07:21-0500 SaO2% (BldA) [Mass fraction] 98 % Franklin Iyer MD Work Phone: [facility] 04-30-2024 07:21-0500 Systolic blood pressure 128 mm[Hg] Franklin Iyer MD Work Phone: [facility] 06-17-2023 05:39-0500 Body temperature 97.5 [degF] [facility] 06-17-2023 05:39-0500 Diastolic blood pressure 88 mm[Hg] [facility] 06-17-2023 05:39-0500 Heart rate 74 /min [facility] 03-02-2024 05:39-0500 Respiratory rate 16 /min [facility] 06-17-2023 05:39-0500 SaO2% (BldA) [Mass fraction] 99 % [facility] 06-17-2023 05:39-0500 Systolic blood pressure 119 mm[Hg] [facility] 06-17-2023 04:12-0500 Body height 177.8 cm [facility] 06-17-2023 04:12-0500 Body mass index (BMI) [Ratio] 25.8 kg/m2 [facility] 06-17-2023 04:12-0500 Body weight 81.64 kg [facility] 06-16-2023 18:26-0500 Heart rate 58 /min [facility] 06-16-2023 18:26-0500 Respiratory rate 16 /min [facility] 06-16-2023 18:26-0500 SaO2% (BldA) [Mass fraction] 97 % [facility] 06-16-2023 17:45-0500 Body temperature 97.4 [degF] [facility] 06-16-2023 17:45-0500 Diastolic blood pressure 69 mm[Hg] [facility] 06-16-2023 17:45-0500 Systolic blood pressure 104 mm[Hg] [facility] 06-16-2023 15:50-0500 Inhaled oxygen flow rate 2 L/min [facility] 06-16-2023 12:04-0500 Body height 177.8 cm [facility] 06-16-2023 12:04-0500 Body mass index (BMI) [Ratio] 26.3 kg/m2 [facility] 06-16-2023 12:04-0500 Body weight 83.27 kg [facility] 05-27-2023 17:52-0500 Heart rate 84 /min [facility] 05-27-2023 17:52-0500 Respiratory rate 18 /min [facility] 05-27-2023 17:52-0500 SaO2% (BldA) [Mass fraction] 97 % [facility] 05-27-2023 15:45-0500 Body height 180.34 cm [facility] 05-27-2023 15:45-0500 Body temperature 99.8 [degF] [facility] 05-27-2023 15:45-0500 Diastolic blood pressure 102 mm[Hg] [facility] 05-27-2023 15:45-0500 Systolic blood pressure 153 mm[Hg] [facility] Encounters Encounter Date Encounter Type Care Provider Facility Start: 11-26-2024 End: 11-26-2024 Patient encounter procedure [facility] MD [facility] Comment on above: Liver lesion, right lobe (Primary Dx); Elevated BP without diagnosis of hypertension; Headaches; Alcohol abuse; Chewing tobacco use; Vitamin D deficiency Start: 11-26-2024 End: 11-26-2024 ambulatory FRANKLIN IYER Facility:[facility] Start: 11-15-2024 End: 11-26-2024 Follow-up encounter Franklin Iyer MD Work Phone: [facility] Comment on above: Results Start: 11-13-2024 End: 11-13-2024 ambulatory Franklin Iyer MD Work Phone: [facility] Comment on above: MRI results Start: 11-06-2024 ambulatory FRANKLIN IYER Fac ility:[facility] Start: 11-06-2024 End: 11-06-2024 Subsequent hospital visit by physician [facility] (I-Stat/1.5t) Work Phone: Radiology Comment on above: Liver lesion, right lobe [K76.9] Start: 07-04-2024 End: 07-04-2024 Follow-up encounter Franklin Iyer MD Work Phone: [facility] Comment on above: Results Start: 07-03-2024 End: 07-03-2024 ambulatory FRANKLIN IYER Facility:[facility] Start: 04-30-2024 End: 04-30-2024 Patient encounter procedure Franklin Iyer MD Work Phone: [facility] Comment on above: Elevated BP without diagnosis of hypertension (Primary Dx); Headaches; Alcohol abuse Start: 04-30-2024 End: 04-30-2024 ambulatory FRANKLIN IYER Facility:[facility] Start: 04-24-2024 End: 04-24-2024 Telephone encounter Franklin Iyer MD Work Phone: [facility] Comment on above: Results Start: 2024 End: 2024 ambulatory FRANKLIN IYER Facility:[facility] Start: 2024 End: 2024 Subsequent hospital visit by physician [facility] (I-Stat/1.5t) Work Phone: Radiology Comment on above: Liver lesion, right lobe [K76.9] Start: 04-09-2024 End: 04-09-2024 Telephone encounter Franklin Iyer MD Work Phone: [facility] Comment on above: Results Start: 04-08-2024 End: 04-08-2024 ambulatory FRANKLIN IYER Facility:[facility] Start: 04-08-2024 End: 04-08-2024 Subsequent hospital visit by physician [facility] Work Phone: Radiology Comment on above: Alcohol abuse [F10.1 0] Start: 04-03-2024 End: 04-03-2024 Telephone encounter Franklin Iyer MD Work Phone: [facility] Comment on above: Results Start: 04-02-2024 End: 04-04-2024 ambulatory Franklin Iyer MD Work Phone: [facility] Comment on above: Test results questio n Start: 03-30-2024 Encounter for genera l adult medical examination without abnormal findings FRANKLIN IYER [facility] Start: 03-30-2024 End: 03-30-2024 ambulatory FRANKLIN IYER Facility:[facility] Start: 08-25-2023 ambulatory Sherita Sanchez ty:[facility] Start: 06-17-2023 End: 06-17-2023 Emergency department patient visit No Primary Care Physician Facility:[facility] Start: 06-17-2023 End: 06-17-2023 Emergency department patient visit [facility]Emer[facility] Work Phone: Start: 06-16-2023 End: 06-16-2023 ambulatory No Primary Care Physician Facility:[facility] Start: 06-16-2023 End: 06-16-2023 Admission to same day surgery center [facility] Start: 06-16-2023 End: 06-16-2023 ambulatory [facility] Work Phone: Start: 06-09-2023 Encounter for other preprocedural examination Franklin Alonso [facility] Start: 06-05-2023 End: 06-05-2023 Patient encounter procedure [facility] Work Phone: Start: 06-05-2023 End: 06-05-2023 ambulatory No Primary Care Physician [facility] Work Phone: Start: 05-27-2023 End: 05-27-2023 Emergency department patient visit No Primary Care Physician Facility:[facility] Start: 05-27-2023 End: 05-27-2023 Emergency department patient visit [facility] Work Phone: Start: 05-26-2023 End: 05-27-2023 Emergency department patient visit MATTHIEU MAL Facility:[facility] Start: 04-14-2017 [facility] Start: 04-11-2017 [facility] Procedures Date Procedure Procedure Detail Performing Clinician Start: 2024 Mri abdomen w/o & w/contrast material Franklin Iyer MD Work Phone: Start: 03-30-2024 Lipid 1996 panel - S keyon or Plasma Franklin Iyer MD Work Phone: Start: 06-16-2023 End: 06-16-2023 Radiography of ankle Start: 06-16-2023 Fluoroscopic guidance Start: 06-16-2023 Open reduction with internal fixation Plan of Treatment Date Care Activity Detail Author Start: 03-30-2034 Urine microalbumin profile DTaP,Tdap,Td Vaccine (2 - Td or Tdap) [facility] Start: 03-30-2029 Lipid panel Lipid Screening [facility] Start: 11-26-2025 HPV Vaccine (1 - 3-dose SCDM series) HPV Vaccine (1 - 3-dose SCDM series) [facility] Comment on above: Postponed from 2012 (Declined at t his time) Start: 11-26-2025 Pneumococcal vaccination Pneumococcal Vaccine (1 of 2 - PCV) [facility] Comment on above: Postponed from 2004 (Declined at t his time) Start: 11-15-2025 End: 12-15-2025 MR Liver WO and W contrast IV MRI LIVER WO/W IVCON Radiology Routine Liver lesion, right lobe Expected: 11/15/2025, Expires: 12/15/2025 [facility] Work Phone: Comment on above: Expected: 11/15/2025, Expires: Start: 06-02-2025 End: 06-02-2025 Patient encounter procedure 06/02/2025 7:20 AM EST Office Visit [facility] [place] [address] [place] [address] [employer]logar[employer]aryn APRN.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 [address] [place], [place] [address] Physical [facility] [place] Comment on above: Physical Start: 03-30-2025 Covid-19 Vaccine ( season) Covid-19 Vaccine ( season) [facility] Comment on above: Postponed from 12/17/2023 (Declined at t his time) Start: 03-30-2025 Hepatitis B Vaccine (1 of 3 - 19+ 3-dose series) Hepatitis B Vaccine (1 of 3 - 19+ 3-dose series) [facility] Comment on above: Postponed from 2004 (Declined at t his time) Start: 03-30-2025 HIV screening HIV Screening [facility] Comment on above: Postponed from 2003 (Declined at t his time) Start: 12-16-2024 Influenza [facility] Start: 11-15-2024 End: 11-15-2024 Patient encounter procedure 11/15/2024 8:40 AM EDT Office Visit [facility] [place] [address] [facility] [place] [place] [address] Franklin Iyer MD [address] [facility] [place], [place] [address] 6month follow up [facility] [place] Comment on above: 6month follow up Start: 11-12-2024 End: 11-12-2024 Patient encounter procedure 11/12/2024 7:00 AM EDT Office Visit [facility] [place] [address] [facility] [place] [place] [address] Franklin Iyer MD [address] [facility] [place] [address] 6 month follow up [facility] [place] Comment on above: 6 month follow up Start: 10-28-2024 End: 10-28-2024 Patient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 vitamin D level is normal. Recommend taking 1,000 mg of vitamin D daily OTC to maintain this level. documented in this encounter [facility] 07-04-2024 Telephone encounter Note If it contains 1,000 units of vitamin D, then yes. 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 [facility] 07-04-2024 Telephone encounter Note Phoned patient and reviewed message with him. Patient reported he started a mens daily multivitamin and asking if that would be sufficient? Angelika Choi LPN [facility] 07-04-2024 Telephone encounter Note ----- Message from Franklin Iyer MD sent at 07/04/2024 7:01 AM EDT ----- Repeat vitamin D level is normal. Recommend taking 1,000 mg of vitamin D daily OTC to maintain this level. [facility] 04-30-2024 Instructions Franklin Iyer MD - 04/30/2024 7:58 AM EST Check your blood pressure 3-5 times per week and call if above 140/90 consistently. documented in this encounter [facility] 04-30-2024 Note HNO ID: [id number] Author: FRANKLIN IYER MD Service: ? Author Type: Physician Type: Progress Notes Filed: 04/30/2024 09:39 Note Text: Chief Complaint Patient presents with: Follow Up: Bp and headaches HPI Faustino Noriega is a 39 year old male who presents here today for Above Complaints. BP elevated at last OV in March and wanted him to return for recheck. BP much better today. Has not been checking at home, but will be getting BP cuff. States that he has been eating healthier diet with more fruits and vegetables and still works physical job. Denies headache, chest pain, SOB, palpitations, LE edema, vision changes. Headaches have resolved since he improved his diet and has cut back on his alcohol. Has had 6 beers in the last month compared to 50 per week like he was. Past medical history, appointments, medications, allergies reviewed. Previous Medical History PAST MEDICAL HISTORY Diagnosis Date Alcohol abuse Ankle fracture, right, closed, initial encounter 06/2023 s/p ORIF Chewing tobacco use Heart murmur Hyperlipemia Lipoma of back Sebaceous cyst right eyebrow Vitamin D deficiency Previous Surgical History PAST SURGICAL HISTORY Procedure Laterality Date PAST SURGICAL HISTORY OF Right 06/2023 DEMI ankle fracture TONSILLECTOMY AND ADENOIDECTOMY Family History FAMILY HISTORY Problem Relation Age of Onset No Known Problems Mother other (colon) Father Lung Cancer Maternal Grandfather Lung Cancer Paternal Grandfather No Known Problems Son No Known Problems Daughter Patient Allergies ALLERGIES No Known Allergies Current Medications Current Outpatient Medications on File Prior to Visit Medication Sig cholecalciferol, Vitamin D3, (VITAMIN D3) 1,250 mcg (50,000 unit) cap capsule Take 1 capsule by mouth one time a week. thiamine (VITAMIN B1) 100 mg tablet Take 1 tablet by mouth once daily. folic acid 1 mg tablet Take 1 tablet by mouth once daily. No current facility-administered medications on file prior to visit. Social History Social History Tobacco Use Smoking status: Never Smokeless tobacco: Current Types: Chew Tobacco comments: Chewed starting age 15. 1 can every 4 days. Vaping Use Vaping status: Never Used Substance Use Topics Alcohol use: Yes Alcohol/week: 50.0 standard drinks of alcohol Types: 50 Standard drinks or equivalent per week Drug use: Never Review of Symptoms REVIEW OF SYSTEMS GENERAL: No weight loss, malaise or fevers RESPIRATORY: Negative for cough, hemoptysis, wheezing, COPD, dyspnea or shortness of breath CARDIOVASCULAR: Negative for chest pain, leg swelling, hypertension, CHF or palpitations GI: No nausea, vomiting, or diarrhea EXAM: BP 128/70 Pulse 66 Resp 16 Wt 88 kg (194 lb) SpO2 98% BMI 28.41 kg/m? General Appearance: Well appearing, alert, in no acute distress, well-hydrated, well nourished.. Skin: Skin color, texture, turgor normal, no suspicious rashes or lesions. Lungs: Lungs clear to auscultation. No wheezing, rhonchi, rales.. Heart: RRR without murmur, gallop, or rubs. No ectopy. Extremities: No deformities, edema, skin discoloration, clubbing or cyanosis. Good capillary refill. . Health Maintenance List Depression Screening Never done Anxiety Screening Never done Pneumococcal Vaccine(1 of 2 - PCV) Never done Influenza Vaccine(1) due on 10/14/2024 Hepatitis B Vaccine(1 of 3 - 19+ 3-dose series) due on 03/30/2025 HIV Screening due on 03/30/2025 Covid-19 Vaccine( - 2023- season) due on 03/30/2025 Lipid Screening due on 03/30/2029 DTaP,Tdap,Td Vaccine(2 - Td or Tdap) due on 03/30/2034 Hepatitis C Screening Completed HPV Vaccine Aged Out Data reviewed Latest Ref Rng 03/30/2024 WBC 3.70 - 11.00 k/uL 6.79 RBC 4.20 - 6.00 m/uL 5.34 Hemoglobin 13.0 - 17.0 g/dL 15.0 Hematocrit 39.0 - 51.0 % 45.9 MCV 80.0 - 100.0 fL 86.0 MCH 26.0 - 34.0 pg 28.1 MCHC 30.5 - 36.0 g/dL 32.7 RDW-CV 11.5 - 15.0 % 12.9 Platelet Count 150 - 400 k/uL 252 MPV 9.0 - 12.7 fL 11.3 Neut% % 50.2 Abs Neut (ANC) 1.45 - 7.50 k/uL 3.41 Lymph% % 28.3 Abs Lymph 1.00 - 4.00 k/uL 1.92 [place]% % 14.9 Abs [place] <0.87 k/uL 1.01 (H) Eosin% % 5.0 Abs Eosin <0.46 k/uL 0.34 Baso% % 1.2 Abs Baso <0.11 k/uL 0.08 Immature Gran % % 0.4 IMMATURE GRANS (ABS) <0.10 k/uL 0.03 NRBC /100 WBC 0.0 Absolute nRBC <0.01 k/uL <0.01 DTYPE Auto Protein, Total 6.3 - 8.0 g/dL 7.2 Albumin 3.9 - 4.9 g/dL 4.5 Calcium 8.5 - 10.2 mg/dL 9.1 Bilirubin, Total 0.2 - 1.3 mg/dL 0.3 Alkaline Phosphatase 38 - 113 U/L 73 AST 14 - 40 U/L 19 ALT 10 - 54 U/L 31 Glucose 74 - 99 mg/dL 104 (H) BUN 9 - 24 mg/dL 15 Creatinine 0.73 - 1.22 mg/dL 0.78 Sodium 136 - 144 mmol/L 141 Potassium 3.7 - 5.1 mmol/L 4.6 Chloride 98 - 107 mmol/L 108 (H) CO2 22 - 30 mmol/L 22 Anion Gap 8 - 15 mmol/L 11 eGFR >=60 mL/min/1.73m? 117 Cholesterol, Total <200 mg/dL 202 (H) Triglyceride <1 (more content not included)... [facility] 04-30-2024 History of Presen t illness Narrative Chief Complaint Patient presents with: Follow Up: Bp and headaches HPI Faustino Noriega is a 39 year old male who presents here today for Above Complaints. BP elevated at last OV in March and wanted him to return for recheck. BP much better today. Has not been checking at home, but will be getting BP cuff. States that he has been eating healthier diet with more fruits and vegetables and still works physical job. Denies headache, chest pain, SOB, palpitations, LE edema, vision changes. Headaches have resolved since he improved his diet and has cut back on his alcohol. Has had 6 beers in the last month compared to 50 per week like he was. Past medical history, appointments, medications, allergies reviewed. Previous Medical History PAST MEDICAL HISTORY Diagnosis Date Alcohol abuse Ankle fracture, right, closed, initial encounter 06/2023 s/p ORIF Chewing tobacco use Heart murmur Hyperlipemia Lipoma of back Sebaceous cyst right eyebrow Vitamin D deficiency Previous Surgical History PAST SURGICAL HISTORY Procedure Laterality Date PAST SURGICAL HISTORY OF Right 06/2023 DEMI ankle fracture TONSILLECTOMY & ADENOIDECTOMY <AGE 12 Family History FAMILY HISTORY Problem Relation Age of Onset No Known Problems Mother other (colon) Father Lung Cancer Maternal Grandfather Lung Cancer Paternal Grandfather No Known Problems Son No Known Problems Daughter Patient Allergies ALLERGIES No Known Allergies Current Medications Current Outpatient Medications on File Prior to Visit Medication Sig cholecalciferol, Vitamin D3, (VITAMIN D3) 1,250 mcg (50,000 unit) cap capsule Take 1 capsule by mouth one time a week. thiamine (VITAMIN B1) 100 mg tablet Take 1 tablet by mouth once daily. folic acid 1 mg tablet Take 1 tablet by mouth once daily. No current facility-administered medications on file prior to visit. Social History Social History Tobacco Use Smoking status: Never Smokeless tobacco: Current Types: Chew Tobacco comments: Chewed starting age 15. 1 can every 4 days. Vaping Use Vaping status: Never Used Substance Use Topics Alcohol use: Yes Alcohol/week: 50.0 standard drinks of alcohol Types: 50 Standard drinks or equivalent per week Drug use: Never Review of Symptoms REVIEW OF SYSTEMS GENERAL: No weight loss, malaise or fevers RESPIRATORY: Negative for cough, hemoptysis, wheezing, COPD, dyspnea or shortness of breath CARDIOVASCULAR: Negative for chest pain, leg swelling, hypertension, CHF or palpitations GI: No nausea, vomiting, or diarrhea EXAM: BP 128/70 Pulse 66 Resp 16 Wt 88 kg (194 lb) SpO2 98% BMI 28.41 kg/m General Appearance: Well appearing, alert, in no acute distress, well-hydrated, well nourished.. Skin: Skin color, texture, turgor normal, no suspicious rashes or lesions. Lungs: Lungs clear to auscultation. No wheezing, rhonchi, rales.. Heart: RRR without murmur, gallop, or rubs. No ectopy. Extremities: No deformities, edema, skin discoloration, clubbing or cyanosis. Good capillary refill. . Health Maintenance List Depression Screening Never done Anxiety Screening Never done Pneumococcal Vaccine(1 of 2 - PCV) Never done Influenza Vaccine(1) due on 10/14/2024 Hepatitis B Vaccine(1 of 3 - 19+ 3-dose series) due on 03/30/2025 HIV Screening due on 03/30/2025 Covid-19 Vaccine(1 - 2023- season) due on 03/30/2025 Lipid Screening due on 03/30/2029 DTaP,Tdap,Td Vaccine(2 - Td or Tdap) due on 03/30/2034 Hepatitis C Screening Completed HPV Vaccine Aged Out Data reviewed Latest Ref Rng 03/30/2024 WBC 3.70 - 11.00 k/uL 6.79 RBC 4.20 - 6.00 m/uL 5.34 Hemoglobin 13.0 - 17.0 g/dL 15.0 Hematocrit 39.0 - 51.0 % 45.9 MCV 80.0 - 100.0 fL 86.0 MCH 26.0 - 34.0 pg 28.1 MCHC 30.5 - 36.0 g/dL 32.7 RDW-CV 11.5 - 15.0 % 12.9 Platelet Count 150 - 400 k/uL 252 MPV 9.0 - 12.7 fL 11.3 Neut% % 50.2 Abs Neut (ANC) 1.45 - 7.50 k/uL 3.41 Lymph% % 28.3 Abs Lymph 1.00 - 4.00 k/uL 1.92 [place]% % 14.9 Abs [place] <0.87 k/uL 1.01 (H) Eosin% % 5.0 Abs Eosin <0.46 k/uL 0.34 Baso% % 1.2 Abs Baso <0.11 k/uL 0.08 Immature Gran % % 0.4 IMMATURE GRANS (ABS) <0.10 k/uL 0.03 NRBC /100 WBC 0.0 Absolute nRBC <0.01 k/uL <0.01 DTYPE Auto Protein, Total 6.3 - 8.0 g/dL 7.2 Albumin 3.9 - 4.9 g/dL 4.5 Calcium 8.5 - 10.2 mg/dL 9.1 Bilirubin, Total 0.2 - 1.3 mg/dL 0.3 Alkaline Phosphatase 38 - 113 U/L 73 AST 14 - 40 U/L 19 ALT 10 - 54 U/L 31 Glucose 74 - 99 mg/dL 104 (H) BUN 9 - 24 mg/dL 15 Creatinine 0.73 - 1.22 mg/dL 0.78 Sodium 136 - 144 mmol/L 141 Potassium 3.7 - 5.1 mmol/L 4.6 Chloride 98 - 107 mmol/L 108 (H) CO2 22 - 30 mmol/L 22 Anion Gap 8 - 15 mmol/L 11 eGFR >=60 mL/min/1.73m 117 Cholesterol, Total <200 mg/dL 202 (H) Triglyceride <150 mg/dL 152 (H) HDL Cholesterol >39 mg/dL 44 Non HDL Cholesterol <130 mg/dL 158 (H) Fasting Time hrs 2 VLDL Cholesterol <30 mg/dL 30 (H) TC:HDL Ratio <5.10 4.59 LDL Cholesterol <100 mg/dL 128 (H) LDL:HDL Ratio <2.54 2.91 (H) Hemoglobin A1C 4.3 - 5.6 % 5.3 Estimated Average Glucose mg/dL 105 Hep B Surface Ab, Qual Negative Hep B Surf Ab Quant mIU/mL <8.00 TSH 0.270 - 4.200 mIU/L 1.350 Vitamin D 25 Hydroxy 31.0 - 80.0 ng/mL 17.4 (L) Vitamin B1 (TDP), Whole Blood 84.3 - 213.3 nmol/L 252.4 (H) Folate >4.7 ng/mL 18.8 Hep C Antibody IA Negative Negative Hep B Surface Ag Negative Negative Hep B Core Ab, Total Negative Negative Legend: (H) High (L) Low ASSESSMENT/PLAN: 1. Elevated BP without diagnosis of hypertension - ICD9: 796.2, ICD10: R03.0 (primary diagnosis) BP normal today. - Encouraged dietary sodium restriction/DASH diet - Recommended regular aerobic exercise. - Recommend home blood pressure monitoring, to call with readings >140/90. - Encouraged avoidance of excessive alcohol intake - recheck in 6 months. 2. Headaches - ICD9: 784.0, ICD10: R51.9 Resolved with improved BP and cutting back on alcohol use. 3. Alcohol abuse - ICD9: 305.00, ICD10: F10.10 Down to 6 beers per week. Discussed no more than 2 drinks per day and will monitor. Not wanting help with cessation today. Previously discussed risks of alcohol abuse. Franklin Iyer MD documented in this encounter [facility] 04-24-2024 Telephone encounter Note Telephone call placed to patient. Made aware of results and recommendations. Voices understanding. Patient will call in to schedule next MRI. Radha Ramirez LPN [facility] 04-24-2024 Miscellaneous Notes Telephone call placed to patient. Made aware of results and recommendations. Voices understanding. Patient will call in to schedule next MRI. Radha Ramirez LPN MRI of the liver shows indeterminate lesion on right lobe. May represent area of previous injury or contusion. Recommend repeating MRI in 3-6 months to monitor for stability. documented in this encounter [facility] 04-24-2024 Telephone encounter Note MRI of the liver shows indeterminate lesion on right lobe. May represent area of previous injury or contusion. Recommend repeating MRI in 3-6 months to monitor for stability. [facility] 2024 History of Presen t illness Narrative Radiology Service Progress Note DATE OF SERVICE: 2024 TIME: 2:41 PM PATIENT IDENTITY VERIFICATION COMPLETED USING TWO (2) STANDARD IDENTIFIERS: Name and Date of confirmed by patient verbally. FALL SCREENING: Has the patient had 2 falls in the last year or 1 fall with injury or currently using an Ambulatory Assistive Device (Walker, Cane, Wheelchair, Crutches, etc.)? No PATIENT GENDER DATA: Male PATIENT RELEVANT IMPLANT DATA REVIEWED: Yes PATIENT PRESENTS WITH AN IMPLANTABLE OR ATTACHED WIRE FRAME DIPPER: No ALLERGIES: Reviewed and unchanged CONTRAST ALLERGY: NO. EXAM: MRI - CONTRAST TYPE: GROUP II PERIPHERAL IV DATA: Ambulatory: A peripheral IV was started in the Left antecubital site with a Angio cath: 22 gauge. RADIOLOGY DEPARTMENT: MR; Exam(s) Completed: Body: Liver (routine) SIGNATURE: RT Heather(Alysia) PATIENT NAME: Faustino Noriega DATE: 2024 TIME: 2:41 PM documented in this encounter [facility] 2024 Note HNO ID: [id number] Author: NUVIA SHAFFER RT(R) Service: ? Author Type: Technologist Type: Progress Notes Filed: 2024 14:42 Note Text: Radiology Service Progress Note DATE OF SERVICE: 2024 TIME: 2:41 PM PATIENT IDENTITY VERIFICATION COMPLETED USING TWO (2) STANDARD IDENTIFIERS: Name and Date of confirmed by patient verbally. FALL SCREENING: Has the patient had 2 falls in the last year or 1 fall with injury or currently using an Ambulatory Assistive Device (Walker, Cane, Wheelchair, Crutches, etc.)? No PATIENT GENDER DATA: Male PATIENT RELEVANT IMPLANT DATA REVIEWED: Yes PATIENT PRESENTS WITH AN IMPLANTABLE OR ATTACHED WIRE FRAME DIPPER: No ALLERGIES: Reviewed and unchanged CONTRAST ALLERGY: NO. EXAM: MRI - CONTRAST TYPE: GROUP II PERIPHERAL IV DATA: Ambulatory: A peripheral IV was started in the Left antecubital site with a Angio cath: 22 gauge. RADIOLOGY DEPARTMENT: MR; Exam(s) Completed: Body: Liver (routine) SIGNATURE: RT Heather(R) PATIENT NAME: Faustino Noriega DATE: 2024 TIME: 2:41 PM [facility] 04-09-2024 Telephone encounter Note Telephone call placed to patient. Went over results and recommendations. Call for scheduling given to patient, will get scheduled for MRI. Radha Ramirez LPN [facility] 04-09-2024 Miscellaneous Notes Telephone call placed to patient. Went over results and recommendations. Call for scheduling given to patient, will get scheduled for MRI. Radha Ramirez LPN Liver US does not show signs of cirrhosis or liver disease, but does show right lobe lesion which is indeterminate. Recommend MRI for further evaluation. Order placed to be completed MAVIS. Please assist with scheduling. documented in this encounter [facility] 04-09-2024 Telephone encounter Note Liver US does not show signs of cirrhosis or liver disease, but does show right lobe lesion which is indeterminate. Recommend MRI for further evaluation. Order placed to be completed MAVIS. Please assist with scheduling. [facility] 04-04-2024 Telephone encounter Note Patient calls in to discuss results. Reviewed with questions answered. Patient declines hepatitis A or B vaccination at this time. Patient will call back if decides to want vaccination. Elda Wilcox RN [facility] 04-04-2024 Miscellaneous Notes Patient calls in to discuss results. Reviewed with questions answered. Patient declines hepatitis A or B vaccination at this time. Patient will call back if decides to want vaccination. Elda Wilcox RN See TE regarding results. Please see [employer] message. documented in this encounter [facility] 04-03-2024 Telephone encounter Note Patient reached out through [employer]. [employer] message sent to patient with providers results and recommendations. Radha Ramirez LPN [facility] 04-03-2024 Miscellaneous Notes Patient reached out through [employer]. [employer] message sent to patient with providers results and recommendations. Radha Ramirez LPN left message for patient to call office back and speak with triage nurse. Elizabeth Martinez LPN Vitamin D level severely low. Recommend 50,000 units of vitamin D weekly x 12 weeks and recheck in 3 months. Testing for thiamine deficiency was negative. If he is abstaining from alcohol, I would have him hold the vitamin B1/thiamine supplement for now, but if he were to resume drinking would have him start this to prevent deficiency. Continue folate supplement. Negative for infection with hepatitis B and C. No immunity to hepatitis B. Recommend 3 dose vaccination series as NV. Will place orders if patient agreeable. Hepatitis A testing was not done with these labs. If he does not believe he has had hepatitis A vaccination, would recommend twinrix vaccination series instead which contains both hepatitis A and B. Cholesterol level mildly elevated. Recommend low cholesterol diet and exercise. Recheck in 1 year. documented in this encounter [facility] 04-03-2024 Telephone encounter Note See TE regarding results. [facility] 04-03-2024 Telephone encounter Note left message for patient to call office back and speak with triage nurse. Elizabeth Martinez LPN [facility] 04-03-2024 Telephone encounter Note Vitamin D level severely low. Recommend 50,000 units of vitamin D weekly x 12 weeks and recheck in 3 months. Testing for thiamine deficiency was negative. If he is abstaining from alcohol, I would have him hold the vitamin B1/thiamine supplement for now, but if he were to resume drinking would have him start this to prevent deficiency. Continue folate supplement. Negative for infection with hepatitis B and C. No immunity to hepatitis B. Recommend 3 dose vaccination series as NV. Will place orders if patient agreeable. Hepatitis A testing was not done with these labs. If he does not believe he has had hepatitis A vaccination, would recommend twinrix vaccination series instead which contains both hepatitis A and B. Cholesterol level mildly elevated. Recommend low cholesterol diet and exercise. Recheck in 1 year. [facility] 04-02-2024 Telephone encounter Note Please see [employer] message. [facility] 03-30-2024 Note HNO ID: [id number] Author: FRANKLIN IYER MD Service: ? Author Type: Physician Type: Progress Notes Filed: 03/31/2024 06:46 Note Text: Chief Complaint Patient presents with: Establish Care: HPI Faustino Noriega is a 38 year old male who presents here today for Above Complaints. Previous PCP Willie Leal with last OV in 2017. Patient here today because he is worried about possible liver disease due to alcohol use. Patient states that over the last 6-7 months he has noticed the corners of his eyes will turn yellow, pale colored stools (light brown/yellow), and fatigue. States that he was drinking 5-10 beers about 5-6 days per week, but has not had any alcohol in the last week. States that he does not want help with cessation and thinks he will be able to abstain on his own. Had DUI at age 22. Does not drink in the morning and does not get shaking after not having a drink for 24 hours. Girlfriend has expressed concerns with his drinking and has wanted him to cut back. Denies yellowing of his skin, abdominal pain/distention, itching, bleeding/bruising. Also would like lump below right eyebrow checked today. Present for the last 8-9 months and has not changed in size. Non tender. No drainage. . Last tetanus booster more than 10 years ago and would like updated today. Unsure if he has been vaccinated for hepatitis A or B. Past medical history, appointments, medications, allergies reviewed. Previous Medical History PAST MEDICAL HISTORY Diagnosis Date Alcohol abuse Ankle fracture, right, closed, initial encounter 06/2023 s/p ORIF Chewing tobacco use Heart murmur Lipoma of back Previous Surgical History PAST SURGICAL HISTORY Procedure Laterality Date PAST SURGICAL HISTORY OF Right 06/2023 DEMI ankle fracture TONSILLECTOMY AND ADENOIDECTOMY Family History FAMILY HISTORY Problem Relation Age of Onset No Known Problems Mother other (colon) Father Lung Cancer Maternal Grandfather Lung Cancer Paternal Grandfather No Known Problems Son No Known Problems Daughter Patient Allergies ALLERGIES No Known Allergies Current Medications No current outpatient medications on file prior to visit. No current facility-administered medications on file prior to visit. Social History Social History Tobacco Use Smoking status: Never Smokeless tobacco: Current Types: Chew Tobacco comments: Chewed starting age 15. 1 can every 4 days. Vaping Use Vaping status: Never Used Substance Use Topics Alcohol use: Yes Alcohol/week: 50.0 standard drinks of alcohol Types: 50 Standard drinks or equivalent per week Drug use: Never Review of Symptoms REVIEW OF SYSTEMS GENERAL: No weight loss, malaise or fevers NECK: Negative for lumps, goiter, pain and significant neck swelling RESPIRATORY: Negative for cough, hemoptysis, wheezing, COPD, dyspnea or shortness of breath CARDIOVASCULAR: Negative for chest pain, leg swelling, hypertension, CHF or palpitations GI: No nausea, vomiting, or diarrhea SKIN: See HPI PSYCH: Negative for sleep disturbance, mood disorder and recent psychosocial stressors HEMATOLOGY/LYMPHOLOGY: Negative for prolonged bleeding, bruising easily or swollen nodes ENDOCRINE: Negative for cold or heat intolerance, polyuria, polydipsia and goiter NEURO: No history of headaches, syncope, paralysis, seizures or tremors EXAM: BP 152/80 Pulse 78 Resp 14 Ht 176 cm (5' 9.29) Wt 92.1 kg (203 lb) BMI 29.73 kg/m? General Appearance: Well appearing, alert, in no acute distress, well-hydrated, well nourished.. Skin: <0.5 cm sebaceous cyst below right eyebrow. Squash ball sized lipoma on left upper back. Head: Normocephalic, no masses, lesions, tenderness or abnormalities. Eyes: Anicteric sclera. Pupils are equally round and reactive to light. Extraocular movements are intact. . Ears: External ears normal, canals clear. Oropharynx: Negative findings: lips normal without lesions, buccal mucosa normal, palate normal, tongue midline and normal, soft palate, uvula, and tonsils normal and Positive findings: dental caries. Neck: Supple, no adenopathy; thyroid symmetric, normal size, no bruits. Lungs: Lungs clear to auscultation. No wheezing, rhonchi, rales.. Heart: RRR without murmur, gallop, or rubs. No ectopy. Abdomen: Abdomen soft, non-tender. Bowel sounds normal. , Positive findings: hepatomegaly, liver edge palpable 2 below costal margin. Extremities: No deformities, edema, skin discoloration, clubbing or cyanosis. Good capillary refill. . Peripheral Pulses: Normal. Lymph Nodes: No cervical lymphadenopathy and No supraclavicular lymphadenopathy. Health Maintenance List Depression Screening Never done Anxiety Screening Never done HIV Screening Never done DTaP,Tdap,Td Vaccine(1 - Tdap) Never done Hepatitis B Vaccine(1 of 3 - 19+ 3-dose series) Never done Lipid Screening Never done Influenza Vaccine(1) d (more content not included)... [facility] 06-16-2023 Procedure note [facility] 06-16-2023 Discharge summary Note Date/Time June 16, 2023 12:08pm [facility] Medical Records Department [address] [place] [address] Instructions for Home/Discharge Instructions 06/16/23 1206 MR#: [id number] Acct: [id number] Name: FAUSTINO NORIEGA Rep #:[id number] : 1985 38 From: Sherita davis DPM PCP: Care Physician,No Primary Status :REG [facility] [place] Discharge Instructions Diet Discharge Diet: No restrictions Activity Discharge Activity: May Not Drive and May Shower (Please utilize cast bag covering when showering to keep dressings clean, dry, and intact to the right leg) Weight Bearing Status: No weight bearing (Please remain nonweightbearing to the right lower extremity with the assistance of crutches) Keep extremity elevated above heart level: Right Leg (Please elevate right lowerextremity at all times of rest for postoperative edema control) Dressing / Incision Call your doctor if you observe: Fever of 101 or Higher, Shortness of breath, Chest pain, Calf discomfort and Uncontrolled pain Change Dressing in: do not change dressing Remove Dressing in: leave in place till F/U (Do not remove dressing and leave dressing in place. Physician will change dressing at first postoperative appointment) Cleanse incision/area with: Do not get Incision Wet and Keep Dressing Clean & Dry (Please keep dressing clean, dry, and intact to the right lower extremity) Follow Up Care Please Follow Up With: Sherita Flores DPM When: Patient has first postoperative appointment with me in office early next week Test Results: Test results from this visit will be discussed in further detail at your follow-up appointment, if applicable. Discharge Plan Admission Attending Provider: Sherita Flores Primary Care Provider: Care Physician,Sallie Primary Discharge Orders/Prescriptions Prescriptions: New doxycycline hyclate 100 mg capsule 100 mg PO DAILY Qty: 10 0RF aspirin 325 mg tablet 325 mg PO DAILY Qty: 20 0RF oxycodone-acetaminophen 5-325 mg tablet 1 tab PO Q8H PRN (Reason: pain) 7 Days Qty: 28 0RF No Action hydrocodone-acetaminophen [hydrocodone-acetaminophen] 5-325 mg tablet 1 tab PO Q6H PRN PRN (Reason: Pain) 3 Days Qty: 12 0RF Referrals / Follow Up: Care Physician,Sallie Primary [Primary Care Provider] - Disposition Disposition (needs filled in before D/C Order can be placed): Home, Self Care 06/16/23 1647<Electronically signed by Sherita Flores DPM>Sherita Flores DPM CC: No Primary Care Physician ~ Signed [facility] Work Phone: Evaluation noteNo assessment information available [facility] Work Phone: Evaluation note* Diagnosis Onset Date Resolution Status [id number] acute [id number] acute Pain in right lower leg acut e Syndesmotic disruption of right ankle acute [facility] Work Phone: Evaluation note* Diagnosis Vitamin D deficiency- Primary Unspecified vitamin D deficiency Sebaceous cyst Lipoma of back Lipoma of other specified sites Hyperlipidemia, unspecified hyperlipidemia type Chewing tobacco use Tobacco use disorder documented in this encounter [facility] note* Diagnosis Alcohol abuse Alcohol abuse, unspecified Pale stool Abnormal feces documented in this encounter [facility] note* Diagnosis Liver lesion, right lobe- Primary Other specified disorders of liver documented in this encounter [facility] note* Diagnosis Liver lesion, right lobe Other specified disorders of liver [facility] Diagnosis Liver lesion, right lobe- Primary Other specified disorders of liver documented in this encounter [facility] note* Diagnosis Elevated BP without diagnosis of hypertension- Primary Headaches Alcohol abuse Alcohol abuse, unspecified documented in this encounter [facility] note* Diagnosis Liver lesion, right lobe Other specified disorders of liver documented in this encounter [facility] note* Diagnosis Liver lesion, right lobe- Primary Other specified disorders of liver Elevated BP without diagnosis of hypertension Headaches Alcohol abuse Alcohol abuse, unspecified Chewing tobacco use Tobacco use disorder Vitamin D deficiency Unspecified vitamin D deficiency documented in this encounter [facility] note* Diagnosis Liver lesion, right lobe- Primary Other specified disorders of liver [facility] Additional [facility]ructions [facility] Work Phone: Hospital Discharge instructions Additional Instructions Please add the ibuprofen and Valium to your pain regimen for improved control. Please follow-up with your surgeon for repeat evaluation and return to the ER should you have any further [facility] Work Phone: Reason for visit Narrative* Diagnostic Procedure Only (Routine) - Closed Specialty Diagnoses / Procedures Referred By Contac t Referred To Contact [facility] IMAGING Diagnoses Alcohol abuse Pale stool Procedures US ABD RIGHT UPPER QUADRANT US ABDOMINAL REAL TIME W/IMAGE LIMITED Franklin Iyer MD [address] [place] [address] [place] [address] Referral ID Status Reason Start Date Expiration Date V isits Requested Visits Authorized [id number] Closed Auto-Generate d Referral 03/30/2024 04/29/2025 1 1 [facility] MRI/CT (Routine) - Closed Specialty Diagnoses / Procedures Referred By David dumas Referred To Contact [facility] IMAGING Diagnoses Liver lesion, right lobe Procedures MRI LIVER WO/W IVCON MRI ABDOMEN W/O & W/CONTRAST MATERIAL Franklin Iyer MD [address] [place] [address] Phone: tel: fax: [place] [address] Referral ID Status Reason Start Date Expiration Date V isits Requested Visits Authorized [id number] Closed Auto-Generate d Referral 10/24/2024 12/23/2024 1 1 [facility] Summary Purpose Family History No Family History Records FoundNo Family History Records FoundNo Family History Records FoundNo Family History Records Found Advance Directives No Advanced Directives Records Found Advance Directive Response Recorded Date/ Time Living Will No May 27 3:52pm Power of Proprietary Trader No May 27, 2023 3:52pm Advance Directive Response Recorded Date/ Time Living Will No June 14 024 12:58pm Power of Proprietary Trader No June 14, 2023 12:58pm Advance Directive Response Recorded Date/ Time Living Will No June 17, 2023 4:14am Power of Proprietary Trader No June 16 4:14am Chief Complaint and Reason for Visit Chief Complaint LEG EORDER Chief Complaint LEG EORDER ORIF of displaced trimalleolar righ Reason for Visit [id number] Pain in right lower leg Syndesmotic disruption of right ankle Chief Complaint LEG EORDER ORIF of displaced trimalleolar righ wound check Reason for Visit [id number] Pain in right lower leg Syndesmotic disruption of right ankle Reason for Referral Specialty Diagnoses / Procedures Referred By David dumas Referred To Contact MR IMAGING Diagnoses Liver lesion, right lobe Procedures MRI LIVER WO/W IVCON MRI ABDOMEN W/O & W/CONTRAST MATERIAL Franklin Iyer MD [address] [place] [address] [place] [address] Referral ID Status Reason Start Date Expiration Date Visits Requested Visits Authorized [id number] Pending Review Auto-Generat ed Referral 05/09/2025 1 1 Referral ID Status Reason Start Date Expiration Date V isits Requested Visits Authorized [id number] Closed Auto-Generate d Referral 04/11/2024 06/10/2024 1 1 Referral ID Status Reason Start Date Expiration Date Visits Requested Visits Authorized [id number] New Request Auto-Generat ed Referral 07/23/2024 05/24/2025 1 1 Additional Source Comments (unrecognized sect ion and content) No Status Records FoundNo Status Records FoundNo Status Records FoundNo Status Records Found INFORMATION SOURCE (unrecogn ized section and content) DATE CREATED AUTHOR 10/10/2017 [facility] DATE CREATED AUTHOR AUTHOR'S ORGANIZ ATION 05/28/2023 [facility] DATE CREATED AUTHOR AUTHOR'S ORGANIZ ATION 08/19/2023 [facility] DATE CREATED AUTHOR AUTHOR'S ORGANIZ ATION 12/01/2024 [facility] Care Teams (unrecognized sec tion and content) Team Status: Active Member Role Status Dates No Primary Care Physician Primary Care Provider Active Team Status: Inactive Member Role Status Dates Dr. Donnie Dahl MD Attending Provider, Emergency Provider Active No Primary Care Physician Primary Care Provider Active Team Status: Inactive Member Role Status Dates No Primary Care Physician Primary Care Provider Active Dr. Rommel Alonso MD Attending Provider, Referri ng Provider Active Team Status: Inactive Member Role Status Dates No Primary Care Physician Primary Care Provider Active Dr. Sherita Flores DPM Attending Provider, Referri ng Provider Active Team Status: Inactive Member Role Status Dates No Primary Care Physician Primary Care Provider Active Dr. Clay Armas , DO Emergency Provider Active [employer] Relationship Specialty Start Date End Date Franklin Iyer MD [address] [place], [place] [id number] PCP - General Family Medicine 03/30/24 [employer] Relationship Specialty Start Date End Date Franklin Iyer MD [address] [place], [place] [id number] PCP - General Family Medicine 03/30/24 [employer] Relationship Specialty Start Date End Date Franklin Iyer MD [address] [place] [address] PCP - General Family Medicine 03/30/24 [employer] Relationship Specialty Start Date End Date Franklin Iyer MD [address] [place] [address] PCP - General Family Medicine 03/30/24 [employer] Relationship Specialty Start Date End Date Franklin Iyer MD [address] [place] [address] PCP - General Family Medicine 03/30/24 [employer] Relationship Specialty Start Date End Date Franklin Iyer MD [address] [place] [address] PCP - General Family Medicine 03/30/24 [employer] Receiver Relationship Specialty Start Date End Date Franklin Iyer MD [address] [place] [address] PCP - General Family Medicine 03/30/24 Roxanna Allen APRN.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 [address] [place] [address] Division Order Technician Family Medicine 06/28/24 Karyn Niño APRN.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 [address] [place] [address] Division Order Technician Family Medicine 06/28/24 [employer] Receiver Relationship Specialty Start Date End Date Franklin Iyer MD [address] [place] [address] PCP - General Family Medicine 03/30/24 Podlogar, DAMIÁN Boss.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 [address] [place] [address] Division Order Technician Family Medicine 06/28/24 Roxanna Allen APRN.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 [address] [place] [address] Division Order Technician Family Medicine 09/26/24 [employer] Receiver Relationship Specialty Start Date End Date Franklin Iyer MD [address] [place] [address] PCP - General Family Medicine 03/30/24 Podlogar, DAMIÁN Boss.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 [address] [place] [address] Division Order Technician Family Medicine 06/28/24 Roxanna Allen APRN.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 [address] [place] [address] [facility] [employer] Receiver Relationship Specialty Start Date End Date Franklin Iyer MD [address] [place] [address] PCP - General Family Medicine 03/30/24 PodlogarKaryn MATERIALS CLERK.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 [address] [place] [address] Division Order Technician Family Medicine 06/28/24 Roxanna Allen MATERIALS CLERK.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 [address] [place] [address] [facility] 09/26/24 [employer] Receiver Relationship Specialty Start Date End Date Franklin Iyer MD [address] [place], [place] [id number] PCP - General Family Medicine 03/30/24 Karyn Niño APRN.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 [address] [place], [place] [id number] [facility] 06/28/24 Roxanna Allen APRN.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 [address] [place], [place] [id number] [facility] 09/26/24 Goals (unrecognized section and content) Goals may be documented in a n alternate section Source Comments (unrecognize d section and content) In the event this informatio n is protected by the Federal Confidentiality of Alcohol and Drug Abuse Patient Records regulations: The Federal rules restrict any use of the information to criminally investigate or prosecute any alcohol or drug abuse patient.[facility] the event this information is protected by the Federal Confidentiality of Alcohol and Drug Abuse Patient Records regulations: The Federal rules restrict any use of the information to criminally investigate or prosecute any alcohol or drug abuse patient.[facility] the event this information is protected by the Federal Confidentiality of Alcohol and Drug Abuse Patient Records regulations: The Federal rules restrict any use of the information to criminally investigate or prosecute any alcohol or drug abuse patient.[facility] the event this information is protected by the Federal Confidentiality of Alcohol and Drug Abuse Patient Records regulations: The Federal rules restrict any use of the information to criminally investigate or prosecute any alcohol or drug abuse patient.[facility] the event this information is protected by the Federal Confidentiality of Alcohol and Drug Abuse Patient Records regulations: The Federal rules restrict any use of the information to criminally investigate or prosecute any alcohol or drug abuse patient.[facility] the event this information is protected by the Federal Confidentiality of Alcohol and Drug Abuse Patient Records regulations: The Federal rules restrict any use of the information to criminally investigate or prosecute any alcohol or drug abuse patient.[facility] the event this information is protected by the Federal Confidentiality of Alcohol and Drug Abuse Patient Records regulations: The Federal rules restrict any use of the information to criminally investigate or prosecute any alcohol or drug abuse patient.[facility] the event this information is protected by the Federal Confidentiality of Alcohol and Drug Abuse Patient Records regulations: The Federal rules restrict any use of the information to criminally investigate or prosecute any alcohol or drug abuse patient.[facility] the event this information is protected by the Federal Confidentiality of Alcohol and Drug Abuse Patient Records regulations: The Federal rules restrict any use of the information to criminally investigate or prosecute any alcohol or drug abuse patient.[facility] the event this information is protected by the Federal Confidentiality of Alcohol and Drug Abuse Patient Records regulations: The Federal rules restrict any use of the information to criminally investigate or prosecute any alcohol or drug abuse patient.[facility] the event this information is protected by the Federal Confidentiality of Alcohol and Drug Abuse Patient Records regulations: The Federal rules restrict any use of the information to criminally investigate or prosecute any alcohol or drug abuse patient.[facility] the event this information is protected by the Federal Confidentiality of Alcohol and Drug Abuse Patient Records regulations: The Federal rules restrict any use of the information to criminally investigate or prosecute any alcohol or drug abuse patient.[facility] Reason for Visit (unrecogniz ed section and content) Reason Comments Results Reason Comments Results Specialty Diagnoses / Procedures Referred By Contsd t Referred To Contact MR IMAGING Diagnoses Liver lesion, right lobe Procedures MRI LIVER WO/W IVCON MRI ABDOMEN W/O & W/CONTRAST MATERIAL Franklin Iyer MD [address] [place] [address] [place] [address] Referral ID Status Reason Start Date Expiration Date V isits Requested Visits Authorized [id number] Closed Auto-Generate d Referral 04/11/2024 06/10/2024 1 1 Reason Comments Follow Up Bp and headaches Reason Onset Date Comments Results 07/04/2024 Reason Comments 6 Month Exam Reason Onset Date Comments Results 11/15/2024 FOR RECORDS PERTAINING TO PATIENTS WHO ARE [...] BE BASED ON THE PRIMARY CLINICAL RECORDS. [employer] provides no warranty or guarantee of the accuracy or completeness of information in this document.
--- NOTE | 2025-01-08 00:45 | ED.VIS.DENTA ---
HPI History of Present Illness Chief Complaint: Dental [facility] Medical History Alcohol use Crutches as ambulation aid Heartburn Non-smoker History of irregular heartbeat Home Medications ?Medication ?Instructions ?Recorded ?Last Taken ?Type amoxicillin 875 mg-potassium 1 tab PO BID 7 days #14 tabs 01/08/25 Unknown Rx clavulanate 125 mg tablet Allergy/AdvReac Type Severity Reaction Status Date / Time No Known Allergies Allergy Verified 01/08/25 00:16 Surgical History History of tonsillectomy Social History Smoking Status: Never smoker EXAM Physical Exam Const Vital Signs: 01/08/25 00:16 Temperature 97.1 F L Temperature Source Oral Pulse Rate 58 L Respiratory Rate 16 Blood Pressure 151/104 H Blood Pressure Mean 119 Pulse Ox 98 MDM MDM MDM Narrative Medical decision making narrative: HISTORY OF PRESENT ILLNESS: 39-year-old male with no significant past medical history presents with concern for infection of wisdom teeth. Notes pains going on for days. He further states he has had several days of dental pain. REVIEW OF SYSTEMS: Pertinent positives: Dental pain Pertinent negatives: Sore throat, neck pain, swelling of the jaw PHYSICAL EXAM: Nursing triage notes reviewed, Vital signs reviewed Constitutional: please see mdm HENT: MMM, no evidence of dental abscess, no submandibular edema or induration, no tonsillar exudates or erythema, uvula midline, patient was controlling secretions, no drooling, no trimus, no dysphonia Eyes: Pupils equal round and reactive to light, Extraocular muscles intact Neck: No stridor, no JVD, full neck ROM Lungs: Clear to auscultation, No wheezing or rales. No increased work of breathing, no conversational dyspnea, no accessory muscle use, no nasal flaring. No respiratory distress noted Heart: Regular rate and rhythm, No murmurs, No rubs and No gallops, 2+ distal pulses (radial, femoral, posterior tibial) in all extremities MEDICAL DECISION MAKING: Chief Complaint: Dental pain External records reviewed: Reviewed prior encounters Factors affecting care: None Social determinants of health: Denies drug Consults: None MDM Narrative: The patient was hemodynamically stable, afebrile, nontoxic-appearing. Exam without obvious palpable abscess. No submandibular edema or swelling. No drooling. No signs of acute pharyngitis, RPA or CRITICAL CARE TRANSPORT NURSE. I considered the following differential diagnosis: Dental abscess, ANUG, Ludewig's angina, RPA, CRITICAL CARE TRANSPORT NURSE, dental caries, gingivitis Exam consistent with dental caries and likely dental infection. Will give a short course of antibiotics and discharge close dental follow-up. Strict return precautions were discussed. Questions answered. Shared decision making: I will have a discussion with the patient and or visitors regarding risk/benefits of further testing or admission. They will be made aware of of the risk/benefits inherent in this decision they will be given the opportunity to voice understanding. Impression: 1. Acute dental pain Disposition: Discharge home This note was generated with [employer] dictation software. It may contain incorrect words, spelling, and punctuation that were not noted in review of the chart prior to signing. Discharge Plan Triage Chief Complaint: Dental ED Provider: Tristian Hamilton Dx/Rx/DC Orders Instructions: ED Dental Pain Prescriptions: New amoxicillin-pot clavulanate 875-125 mg tablet 1 tab PO BID 7 Days Qty: 14 0RF Primary Care Provider: Rommel Iyer Referrals: Rommel Iyer MD [Primary Care Provider, Family Practice] Activity Restrictions/Additional Instructions: Thank you for trusting us with your care today! Please take Tylenol (2 pills, 650 mg), ibuprofen (2 pills, 400 mg) every 6 hours as needed for pain and fever control. Please take antibiotics until course is complete Please return to the emergency department if your symptoms change or worsen. Please follow Dentistry for further outpatient evaluation and management. Print Language: Chilean Disposition Disposition: Home, Self Care
[2025-01-08 01:14] VITALS: BP 135/101; PULSE 59; RESP 16; TEMP 36.2; O2SAT 99
== END 2025-01-08 01:14 | disposition home or self-care (01) ==
PROVIDERS: Emergency Provider Emergency Medicine; PCP Family Medicine; Visit Provider Emergency Medicine
DX: K08.89 Other specified disorders of teeth and supporting structures (principal)
CPT/HCPCS: 99283